=== PATIENT | male | born 1950 | race Caucasian/White ===

== ENCOUNTER 2017-07-27 11:04 | Inpatient (IN) | payer MEDICARE, BC ==
[2017-07-27] MEDS ORDERED: methylPREDNISolone Sod Succ/PF 125 MG/2 ML VIAL ONE (11:25)
[2017-07-27] MEDS ORDERED: Water For Inject, Bacteriostat 30 ML ONE (11:25)
[2017-07-27] MEDS ORDERED: Azithromycin 500 MG VIAL ONE (12:02)
[2017-07-27] MEDS ORDERED: cefTRIAXone\\ROCEPHIN 2 GM VIAL ONE (12:02)
[2017-07-27 12:04] LABS: Hematocrit 45.6 % (42.0-52.0); Mean Platelet Volume 9.9 fL (7.4-10.4); White Blood Cell (WBC) Count 0.6 thou/uL (4.8-10.8)
[2017-07-27 12:06] LABS: ALT (SGPT) 12 U/L (8-55); AST (SGOT) 12 U/L (5-34); Alkaline Phosphatase 63 U/L (40-150); Anion Gap 13 mmol/L (10-20); BUN (Urea Nitrogen) 62 mg/dL (8.4-25.7); Bilirubin, Total 0.9 mg/dL (0.2-1.2); Calc. Creatinine Clearance 0 mL/min (70-130); Calcium 8.6 mg/dL (7.8-10.44); Carbon Dioxide 22 mmol/L (23-31); Chloride 101 mmol/L (98-107); Estimated GFR-MDRD 41; Globulin 2.2 g/dL (2.4-3.5); Protein, Total 5.3 g/dL (5.8-8.1)
[2017-07-27 12:14] LABS: Troponin I 0.013 ng/mL (< 0.028)
[2017-07-27 12:15] LABS: Lactic Acid - Sepsis 2.3 mmol/L (0.5-2.2)
[2017-07-27 12:19] LABS: Band 20 % (5-11); Neutrophil 20 % (42-75)
[2017-07-27] MEDS ORDERED: Ketorolac Tromethamine 30 MG/ML VIAL ONE (12:39)
[2017-07-27] MEDS ORDERED: Norepinephrine 8 MG/0.9% NS 250 ML ONE (13:22)
[2017-07-27 15:19] VITALS: BMI 29.7
[2017-07-27] MEDS ORDERED: Norepinephrine 8 MG/0.9% NS 250 ML IVPB SCH (15:30)
[2017-07-27] MEDS ORDERED: Albuterol Sulfate 1.25 MG/3 ML NEB NEB PRN (15:30)
[2017-07-27] MEDS ORDERED: Bisacodyl 10 MG SUPP PR PRN (15:31)
[2017-07-27] MEDS ORDERED: Ondansetron HCl/PF 4 MG/2 ML Vial IVP PRN (15:31)
[2017-07-27] MEDS ORDERED: Calcium Carbonate 500 MG ChewTAB PO PRN (15:31)
[2017-07-27] MEDS ORDERED: Bisacodyl 5 MG TAB PO PRN (15:31)
[2017-07-27] MEDS ORDERED: Ondansetron ODT 4 MG TAB PO PRN (15:31)
[2017-07-27] MEDS ORDERED: Acetaminophen 650 MG Suppository PR PRN (15:31)
[2017-07-27] MEDS ORDERED: Acetaminophen 325 MG TAB PO PRN (15:31)
[2017-07-27 15:55] LABS: PTT 28.6 SEC (22.9-36.1); Prothrombin Time 17.6 SEC (12.0-14.7)
[2017-07-27] MEDS: Sodium Chloride 0.9% 1,000 ML IV SCH (16:07)
[2017-07-27 16:09] LABS: Troponin I Less than 0.010 ng/mL (< 0.028)
[2017-07-27 16:41] LABS: Bilirubin Negative (Negative); Blood, Urine Negative (Negative); Glucose, Urine (Dipstick) Negative (Negative); Ketone, Urine Negative (Negative); Nitrite Negative (Negative); Protein, Urine (Dipstick) Negative (Neg-Trace)
[2017-07-27] MEDS ORDERED: Cefepime 2 GM in Sodium Chloride 0.9% 100 ML IVPB SCH (17:00)
[2017-07-27] MEDS: Hydrocortisone Sod Succ/PF 100 mg/2 ml Vial IVP SCH ×2 (17:40→23:00)
[2017-07-27] MEDS: Mometasone/Formoterol 120 PUFF INHALER INH SCH (18:39)
[2017-07-27 19:43] LABS: Hematocrit 39.1 % (42.0-52.0); Mean Platelet Volume 10.1 fL (7.4-10.4); Red Blood Cell (RBC) Count 3.95 mill/uL (4.70-6.10); White Blood Cell (WBC) Count 1.1 thou/uL (4.8-10.8)
[2017-07-27] MEDS ORDERED: Zolpidem Tartrate 5 MG TAB PO PRN (20:00)
[2017-07-27 20:10] LABS: Band 20 % (5-11); Neutrophil 64 % (42-75); Reactive Lymphocytes 4 % (0-10); Toxic Granulation SLIGHT
[2017-07-27] MEDS: Atorvastatin Calcium 10 MG TAB PO SCH (20:27)
[2017-07-27] MEDS: Morphine Sulfate 2 MG/ML SYRINGE SLOW IVP PRN (20:39)
--- NOTE | 2017-07-27 22:54 | CON ---
DATE OF CONSULT: 07/27/2017 SUBJECTIVE: A 66-year-old gentleman who was here for MediPort insertion. Prior to that he develope d chills and sweats. Post-MediPort insertion, he was hypertensive and developed some left lower seymour k pain, anterior chest pain, and he was taken to the ER where he was hypertensive. He received 4 li ters of IV fluids and is transferred now to the ICU, his blood pressure which is now 110. He is denying any sputum production, but he clearly had chills and sweats. 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 PAST MEDICAL HISTORY: Otherwise, pertinent for COPD and chemotherapy a week ago, hyperlipidemia, hi gh cholesterol. PAST SURGICAL HISTORY: None except for the bronchoscopy. CURRENT MEDICATION FROM HOME: Includes amlodipine, valsartan, Spiriva, Pravachol, Advair, Zyrtec, a spirin. REVIEW OF SYSTEMS: Otherwise negative. ALLERGIES: PENICILLIN. PHYSICAL EXAMINATION: GENERAL: On examination, awake, alert, responsive, appears in no distress. VITAL SIGNS: His blood pressure is 130/80, pulse is 90, sats are 97%, respirations 15. CHEST: Decreased breath sounds, no wheezing. CARDIAC: Normal S1, S2. No gallops. ABDOMEN: Soft. No masses. LABORATORY DATA: White count 10.6, H\T\H 15 and 45, platelet count 24, creatinine is 1.69. Sodium 132. GFR is 41, albumin is 3.1. IMPRESSION: 1. Status post hypertension, status post chemotherapy. 2. Severe thrombocytopenia, leukopenia. 3. Small cell bronchogenic carcinoma. No fever, chills, or sepsis. 4. Chronic obstructive pulmonary disease. 5. Azotemia. Sepsis protocol initiated with Maxipime, thiamine, and vitamin C. Additionally, continue hydration. His cortisol level is low, started on hydrocortisone . Supportive care. We will follow and notify Dr. Castle in the morning.
[2017-07-28] MEDS: Sodium Chloride 0.9% 1,000 ML IV SCH ×4 (00:12→13:28)
[2017-07-28] MEDS ORDERED: AZITHROMYCIN IVPB SCH (02:00)
[2017-07-28] MEDS ORDERED: SODIUM CHLORIDE IVPB SCH (02:00)
[2017-07-28] MEDS ORDERED: ADMIXTURE FEE IVPB SCH (02:00)
[2017-07-28] MEDS ORDERED: Azithromycin 250 MG in Syringe 0 ML IVPB SCH (02:00)
[2017-07-28] MEDS: Cefepime 2 GM in Sodium Chloride 0.9% 100 ML IVPB SCH ×2 (02:58→13:31)
[2017-07-28] MEDS: Morphine Sulfate 2 MG/ML SYRINGE SLOW IVP PRN ×2 (03:41→09:09)
[2017-07-28 04:32] LABS: Hematocrit 41.3 % (42.0-52.0); Mean Platelet Volume 10.8 fL (7.4-10.4); Red Blood Cell (RBC) Count 4.15 mill/uL (4.70-6.10); White Blood Cell (WBC) Count 1.1 thou/uL (4.8-10.8)
[2017-07-28 04:47] LABS: ALT (SGPT) 11 U/L (8-55); AST (SGOT) 11 U/L (5-34); Alkaline Phosphatase 45 U/L (40-150); Anion Gap 13 mmol/L (10-20); BUN (Urea Nitrogen) 53 mg/dL (8.4-25.7); Bilirubin, Total 0.3 mg/dL (0.2-1.2); Calc. Creatinine Clearance 65 mL/min (70-130); Calcium 8.4 mg/dL (7.8-10.44); Carbon Dioxide 21 mmol/L (23-31); Chloride 107 mmol/L (98-107); Estimated GFR-MDRD 48; Globulin 2.3 g/dL (2.4-3.5); Protein, Total 4.9 g/dL (5.8-8.1)
[2017-07-28 04:51] LABS: Band 12 % (5-11); Neutrophil 50 % (42-75)
[2017-07-28] MEDS: Hydrocortisone Sod Succ/PF 100 mg/2 ml Vial IVP SCH ×4 (05:08→23:27)
--- NOTE | 2017-07-28 07:32 | PRG ---
DATE OF SERVICE: 07/28/2017 SUBJECTIVE: The patient was admitted yesterday with neutropenic sepsis. He was weaned off Levophed about 10:00 last night. He says he feels much better this morning and has no acute complaints. PHYSICAL EXAMINATION: VITAL SIGNS: On exam, his blood pressure is 123/69, pulse 82, respirations 22, O2 sat 97%. Total i ntake for the last shift 2164, output 1750. HEENT: Unremarkable. NECK: Without adenopathy, JVD, or bruits. LUNGS: He has slightly diminished breath sounds in the left compared to the right, but overall bett er air entry than 2 weeks ago when he was examined by myself. CARDIAC: S1 and S2 regular. ABDOMEN: Soft and nontender. EXTREMITIES: Without overt clubbing, cyanosis, or edema. LABORATORY DATA: White blood cell count 1.1, hemoglobin 13, hematocrit 41, platelet count 15. INR 1.4. Sodium 136, potassium 5.2, chloride 107, CO2 21, BUN 53, creatinine 1.4, glucose 137, albumin 2.6. ASSESSMENT: 1. Neutropenic sepsis likely secondary to recent chemotherapy. 2. Small cell lung cancer. 3. Probable underlying chronic obstructive pulmonary disease. 4. Relative adrenal insufficiency. PLAN: The patient has been weaned off vasopressors and can be safely transferred to the Oncology un it. Continue hydrocortisone, vitamin C, cefepime and azithromycin. I think he will need several mo re days of IV antibiotics and I would not attempt to wean vitamin C or thiamine for the next 4 days.
--- NOTE | 2017-07-28 09:05 | RAD ---
PORTABLE CHEST: History: Follow up pneumonia, dyspnea. CCU Comparison: 07-27-17 FINDINGS: Hazy infiltrate in the right midlung again noted. Left basilar atelectasis and/or infiltrate again n oted. Mildly elevated left hemidiaphragm again noted. Central line unchanged. IMPRESSION: The lung findings as noted above have not significantly changed from yesterday. POS: [facility]
[2017-07-28] MEDS: Loratadine 10 MG TAB PO SCH (09:09)
[2017-07-28] MEDS: Famotidine/PF 20 mg/2ml Vial SLOW IVP SCH (09:09)
[2017-07-28 09:53] LABS: Hematocrit 45.6 % (42.0-52.0); Mean Platelet Volume 12.2 fL (7.4-10.4); Red Blood Cell (RBC) Count 4.58 mill/uL (4.70-6.10); White Blood Cell (WBC) Count 1.7 thou/uL (4.8-10.8)
--- NOTE | 2017-07-28 10:21 | HP-2 ---
DATE OF ADMISSION: 07/27/2017 CODE STATUS: DNR. PRIMARY CARE PHYSICIAN: Tatyana. ATTENDING PHYSICIAN: Alberta Menon MD RESIDENT: Dr. Santi Bolton, PGY1 SPECIALISTS: Dr. Cobos, oncologist and Dr. Castle, towboat engineer. CHIEF COMPLAINT: Hypotensive status post port placement. HISTORY OF PRESENT ILLNESS: This is a 66-year-old male, who came in for port placement this morning, and before port placement and postop, patient was hypotensive, nonresponsive to fluids. On starting history, patient since April had been saying he had been increasingly lethargic, having increased shortness of breath and finally went to the doctor and they were working him up for allergy-type stuff. He finally got a chest x-ray, and there was a noted mass. He got a biopsy 2 weeks ago which came back as small cell lung carcinoma. He started chemo last week on , Thursday, and Thursday and then was scheduled for MediPort placement today. When he woke up this morning in the shower he said he started getting pain in his left shoulder; pain then radiated over to his right side of his body and then he came in for a port placement. When he was in for port placement, SBPs were around 80-70. At this time, they still placed the port, but only did it under local anesthetic due to his blood pressure. After the surgery, gave fluid boluses x2 with 2 liters and he was then sent to the ER. When he came to the ER, his blood pressures were still low, was given 2 more liters of 2 fluid boluses and was then seen. Dr. Castle is the one who performed the lung biopsy and Dr. Cobos is the one who started the chemo. He reports that he has had dark stools for the last 4-5 days. No blood when brushing his teeth or when urinating. Denied any chest pain, denied any nausea, vomiting, diarrhea, constipation. He did report a little shortness of breath and increased cough. REVIEW OF SYSTEMS: General: The patient did also report having some fever, chills. Did have weight and decreased appetite changes, has lost weight over the last few months. Also, did report increased fatigue. Respiratory: Did report having cough. GI: Did report having some abdominal pain, having severe pain in the back on the right side, where the pain was referred. All other review of systems are listed in the HPI, otherwise noted were negative at this time. In the ER, he was given two 1 liter fluid boluses in the ER, was given cefepime , Levophed, Rocephin, azithromycin, Toradol, and steroids. PAST MEDICAL HISTORY: Hypertension, hyperlipidemia. PAST SURGICAL HISTORY: He had a colonoscopy on 03/2016 showing 2-3 polyps. ALLERGIES: AMOXICILLIN, which he had breathing problems, and CHANTIX. MEDICATIONS: Amlodipine/valsartan/HCTZ 10/320/25, tiotropium 2 puffs, pravastatin 10 mg, Advair Diskus 1 inhaler b.i.d., Zyrtec 10 mg p.o., aspirin 81 mg, and albuterol inhaler every 3 p.r.n. FAMILY HISTORY: Significant for dad with colon cancer found when in late 60s. SOCIAL HISTORY: He is a 1 pack per day smoker for the last 40 years. He recently quit just a few weeks ago after finding out about the cancer. Alcohol use, he has 1 drink per month. Drugs, no illicit drug use noted. PHYSICAL EXAMINATION: VITAL SIGNS: Blood pressure 76/53, pulse 100, respirations 20, temperature 97.7 , pulse ox 98% on room air. GENERAL: He is kind of lethargic, falling asleep in bed. He does awake to answer questions, but then goes back to sleep. He is obese. He is appropriately interactive, answering questions. EYES: Conjunctivae within normal limits. ENT: TMs pearly paz without bulging or erythema. Nasal mucosa within normal limit and oropharynx within normal limits. No bleeding noted. NECK: Supple, no thyromegaly, no bruits. CARDIOVASCULAR: Regular rate and rhythm. No murmurs, no gallop. Positive radial pulses, positive pedal pulses palpated bilaterally. RESPIRATIONS: He does have some wheezing. Does have some decreased lung sounds on auscultation. SKIN: Warm and dry. No cyanosis. No lesions noted. ABDOMEN: Soft, nontender to palpation. Bowel sounds heard in all 4 quadrants. No masses or distention. There was no pain on palpation; however, the ribs on the right side are pain to palpation on the left side of the shoulder. EXTREMITIES: He did have clubbing noted in his toes and fingernails. No cyanosis. No edema or pitting noted. MUSCULOSKELETAL: Structure within normal limits. Tone within normal limits. NEUROLOGIC: No focal neuro deficits. Sensation was within normal limits. PSYCHIATRIC: The patient was just a little bit lethargic. LABORATORY DATA: White blood cell count was 0.6, hemoglobin was 15.4, hematocrit is 35.6, platelets were 20.4, MCV was 99.1, neutrophils are low at 20. Sodium was 132, potassium 4.2, chloride 101, carbon dioxide 22, BUN 62, creatinine 1.69, GFR 41, glucose of 83, calcium 8.6, total protein 5.3, albumin 3.1, total bilirubin 0.9, AST 12, ALT 12, alkaline phosphatase 63, lactic acid 2.3, CK-MB 1.3, troponin is 0.013. ASSESSMENT AND PLAN: 1. Hypotensive shock not responding to fluid, I will start him on normal saline at 150, we will repeat CBC in 6 hours. We will consult Dr. Mac with Pulmonology and consult Dr. Cobos with Oncology. We will start him on Levophed pressors as he started in the ER and responding. We will put him on strict I and O's with daily weights. We will check his BMP. 2. Thrombocytopenia, possible gastrointestinal bleed. We will check a fecal occult blood test. Start him on Protonix and start him on coags and check his coags in the morning. 3. Severe neutropenia. We will put him on neutropenic precautions. Consult Dr. Cobos and will treat with cefepime and azithromycin antibiotics. 4. Acute kidney injury, creatinine 1.69. We will continue fluids and continue to monitor CMP in the morning. 5. Lactic acidosis may be secondary to septic shock, the source is unknown. Blood cultures, urine cultures pending. Urinalysis collected. There is a concern for pneumonia versus chronic obstructive pulmonary disease versus like pleural effusion. 6. Suspect chronic obstructive pulmonary disease versus pneumonia. We will do DuoNeb scheduled, p.r.n. albuterol and repeat chest x-ray in the morning. 7. Small cell lung cancer. We will consult Dr. Cobos and follow recommendations. 8. Rib pain. We will repeat cardiac enzymes and follow them serially. 9. Weight loss. We will consult dietary likely secondary due to cancer. 10. Suspected obstructive sleep apnea, per history from and patient. We will order a CPAP for the night to help. RONDA
--- NOTE | 2017-07-28 10:58 | PDOC.FM ---
- Subjective Subjective: Patient is feeling well at this time. He is found sitting up in chair, conversing with . - Objective MAR Reviewed: Yes Vital Signs & Weight: Vital Signs (12 hours) Temp Pulse Resp Pulse Ox 07/28/17 08:00 97.8 F 77 18 07/28/17 04:00 97.8 F 07/28/17 00:00 98.2 F 07/27/17 23:12 73 16 97 Weight Weight 93.9 kg Most Recent Monitor Data Heart Rate from ECG 71 NIBP 126/71 NIBP BP-Mean 98 Respiration from ECG 22 SpO2 96 I&O: 07/27/17 07/28/17 07/29/17 06:59 06:59 06:59 Intake Total 2164.8 1268 Output Total 1750 400 Balance 414.8 868 Result Diagrams: 07/28/17 09:28 07/28/17 03:36 <Barrett Saldaña M - Last Filed: 07/28/17 11:05> - Objective Vital Signs & Weight: Vital Signs (12 hours) Temp Pulse Resp 07/28/17 10:15 97.4 F L 78 20 07/28/17 08:00 97.8 F 77 18 07/28/17 04:00 97.8 F Weight Admit Weight 93.894 kg Weight 93.894 kg Most Recent Monitor Data Heart Rate from ECG 71 NIBP 126/71 NIBP BP-Mean 98 Respiration from ECG 22 SpO2 96 I&O: 07/27/17 07/28/17 07/29/17 06:59 06:59 06:59 Intake Total 2164.8 1268 Output Total 1750 400 Balance 414.8 868 Result Diagrams: 07/28/17 09:28 07/28/17 03:36 <Elke Quintana - Last Filed: 07/28/17 12:44> Phys Exam - Physical Examination Constitutional: NAD HEENT: moist MMs Neck: no nodes, supple Crackles heard both lungs Cardiovascular: RRR Gastrointestinal: soft, no distention Musculoskeletal: no edema Neurological: non-focal, moves all 4 limbs Lymphatic: no nodes Psychiatric: normal affect Skin: no rash <Barrett Saldaña M - Last Filed: 07/28/17 11:05> Dx/Plan (1) Neutropenic sepsis Code(s): A41.9 - SEPSIS, UNSPECIFIED ORGANISM; D70.9 - NEUTROPENIA, UNSPECIFIED Status: Acute Plan: - No clear source, blood culture pending still - He is currently covered on cefepime and azithromycin for possible atypical Patient was originally on pressor but was off of it by early this morning - His BP meds have been held. His BP is in 120 systolic - Will continue covering with abx but possible this is not an infection. - He is also getting vit c, thiamin and hydrocortisone for sepsis/hypotension (2) Thrombocytopenia Code(s): D69.6 - THROMBOCYTOPENIA, UNSPECIFIED Status: Acute Plan: Low platelet, no other lab to compare to. Will discuss with Dr. Cobos for baseline patient had prior to chemo treatment. May be result of chemo. At this time, SCD only. Will have to consider sepsis as another possible etiology. (3) Neutropenia associated with mucositis due to antineoplastic therapy Code(s): D70.8 - OTHER NEUTROPENIA; K12.32 - ORAL MUCOSITIS (ULCERATIVE) DUE TO OTHER DRUGS Status: Acute Plan: - Started chemo last week. May be result of chemo. In either case, will cover patient for possible neutropenic sepsis with cefepime and azithromycin for atypical considering patient has lung malignancy. (4) TESSA (acute kidney injury) Code(s): N17.9 - ACUTE KIDNEY FAILURE, UNSPECIFIED Status: Acute Plan: - Creatinine improving. Injury may be from hypotension. BUN ratio greateer then 20. - Will continue with 100 ml/hr of NS (5) Lactic acid acidosis Code(s): E87.2 - ACIDOSIS Status: Acute Plan: - Repeat lactic lab came back normal. Acidosis is likely from previous shock, but resolvede (6) COPD (chronic obstructive pulmonary disease) Status: Acute Plan: Question of possible COPD versus lung malignancy causing some diminish breath sound and crackles on exam. - Will have duoneb treatment for SOB while here (7) Small cell lung cancer Code(s): C34.90 - MALIGNANT NEOPLASM OF UNSP PART OF UNSP BRONCHUS OR LUNG Status: Acute Plan: - Patient undergoing chemo for this. Consult Dr. Cobos so she knows patient is in hospital and if there's any changes she want ot make in light of his malignancy. <Barrett Saldaña M - Last Filed: 07/28/17 11:05> Attending Addendum - Attending Addendum I personally evaluated the patient and discussed the management with Dr. Saldaña. I agree with the History, Examination, Assessment and Plan documented above with any addition or exceptions noted below. The patient was sitting up in a chair with his at bedside. He is off levophed. Continue IV antibiotics. The patient still has neutropenic precautions. Patient likely also has underlying sleep apnea and will need outpt sleep study. <Elke Quintana - Last Filed: 07/28/17 12:44>
[2017-07-28] MEDS ORDERED: traMADol HCl 50 MG TAB PO PRN (11:17)
[2017-07-28] MEDS ORDERED: Melatonin 3 MG TAB PO PRN (11:17)
[2017-07-28] MEDS: Mometasone/Formoterol 120 PUFF INHALER INH SCH ×2 (11:23→20:38)
[2017-07-28] MEDS: Atorvastatin Calcium 10 MG TAB PO SCH (20:24)
--- NOTE | 2017-07-29 02:06 | CON ---
DATE OF CONSULTATION: 07/28/2017 REASON FOR CONSULTATION: Small cell lung cancer. HISTORY OF PRESENT ILLNESS: The patient is a 66-year-old male who was diagnosed with small cell car cinoma. He was experiencing 3 months of shortness of breath with hoarseness and had lost 20 pounds over the past 3 months. He had significant cough and had actually passed out from coughing several times. CT scan showed a left lung mass. Pulmonary and bronchoscopy was performed, which confirmed small cell carcinoma. He then presented to our clinic and received his first cycle of chemotherapy consisting of carboplatin and ACTUARIAL CONSULTANT-16. He received Neulasta after treatment on 07/21/2017. Yesterday , he presented to this facility for a MediPort placement postprocedure. He had hypotension and had to be placed briefly on vasopressors. He received IV fluids. He was neutropenic with a white count of 600 and a platelet count of 24,000. The patient states that since treatment his cough has signi ficantly improved. He feels he is breathing much better. He does admit to dark stools shortly afte r treatment. He has a stool guaiac this morning, which was positive for occult blood. PAST MEDICAL HISTORY: 1. Recently diagnosed small cell lung cancer. 2. High blood pressure. 3. Chronic obstructive pulmonary disease. PAST SURGICAL HISTORY: Bronchoscopy. ALLERGIES: No known drug allergies. HOME MEDICATIONS: 1. Advair b.i.d. 2. Amlodipine, hydrochlorothiazide, valsartan daily. 3. Aspirin 81 mg daily. 4. Pravastatin 40 mg daily. 5. Spiriva daily. 6. ProAir daily. FAMILY HISTORY: He has a father with colon cancer. SOCIAL HISTORY: , has 2 children, lives with his spouse, a current everyday smoker. No alco hol or illicit drug use. REVIEW OF SYSTEMS: Constitutional: No fever, chills, night sweats. Eyes: No blurred or double vi meng. ENT: No pain, sore throat, or dysphagia. Positive for hoarseness. Cardiovascular: No ches t pain, palpitations, or syncope. Respiratory: Positive for occasional shortness of breath and cou gh. Gastrointestinal: No nausea, vomiting, diarrhea, constipation, or abdominal pain. Genitourina ry: No dysuria or hematuria. Musculoskeletal: No joint or back pain. Skin: No rash or pruritus. Hematologic: No bleeding, bruising, or clotting. Neurologic: No headache, weakness, numbness, ti ngling, or seizures. Psychiatric: No anxiety or depression. PHYSICAL EXAMINATION: VITAL SIGNS: Temperature is 97.4, pulse 75, respiratory rate 16, BP is 126/71. He is 94% on room a ir. GENERAL: Well-developed, well-nourished male in no acute distress. HEENT: Normocephalic, atraumatic. Pupils are equal and reactive to light. NECK: Supple without JVD or mass. CARDIOVASCULAR: Regular rate and rhythm. LUNGS: Clear to auscultation. ABDOMEN: Soft, nontender, bowel sounds are positive. EXTREMITIES: No clubbing, cyanosis, or edema. SKIN: No rash. HEMATOLOGIC: No petechia or purpura. NEUROLOGICAL: Nonfocal. PSYCHIATRIC: The patient is alert and oriented and answering questions appropriately. PERTINENT LABORATORY AND X-RAYS: Current WBCs are 1.7, hemoglobin 14.8, hematocrit 45.6, platelet c ount 21,000, 50% neutrophils, 12% bands, 26% lymphocytes. PT is 17.6, INR is 1.4, PTT is 28.6. Sod ium is 136, potassium 5.2, chloride 107, CO2 is 21, BUN is 53, creatinine 1.48. Lactic acid is 1.3, calcium 8.4, total bilirubin 0.3, AST 11, ALT is 11, alkaline phosphatase is 45, CK-MB is 1.2, trop onin is less than 0.010. BNP is 200, serum total protein 4.9, globulin 2.6, albumin 2.3. Urine is negative for bacteria. ASSESSMENT: 1. Small cell lung cancer, status post chemotherapy with carboplatin and ACTUARIAL CONSULTANT-16. 2. Neutropenia. 3. Thrombocytopenia. 4. Hypotensive episode. 5. Positive guaiac of stool. DISCUSSION: The patient is hypertensive, has improved substantially. He will follow up with his PC P to have his blood pressure medications adjusted. His small cell lung cancer symptoms have improve d dramatically since cycle 1 of treatment. His neutrophils are improving. The Neulasta is likely s tarting to work, it has been 7 days. His platelets have remained low, given the positive guaiac of the stool. I will give a unit of platelets today and continue to monitor. No further workup at thi s time. If needed this can be done as an outpatient. Thank you for the consult. I will follow him closely.
[2017-07-29] MEDS: Cefepime 2 GM in Sodium Chloride 0.9% 100 ML IVPB SCH (02:17)
[2017-07-29] MEDS ORDERED: SODIUM CHLORIDE IVPB SCH (03:00)
[2017-07-29] MEDS ORDERED: ADMIXTURE FEE IVPB SCH (03:00)
[2017-07-29] MEDS ORDERED: AZITHROMYCIN IVPB SCH (03:00)
[2017-07-29] MEDS: Hydrocortisone Sod Succ/PF 100 mg/2 ml Vial IVP SCH (05:45)
[2017-07-29 06:23] LABS: Anion Gap 12 mmol/L (10-20); BUN (Urea Nitrogen) 34 mg/dL (8.4-25.7); Calc. Creatinine Clearance 93 mL/min (70-130); Calcium 8.4 mg/dL (7.8-10.44); Carbon Dioxide 24 mmol/L (23-31); Chloride 106 mmol/L (98-107); Estimated GFR-MDRD 65
[2017-07-29 06:40] LABS: #Lymphocytes 0.4 thou/uL (1.20-3.40); #Monocytes 0.1 thou/uL (0.11-0.59); #Neutrophils 1.8 thou/uL (1.40-6.50); %Eosinophils 1.5 % (0.0-10.0); %Lymphocytes 18.2 % (21.0-51.0); %Monocytes 4.4 % (0.0-10.0); Hematocrit 37.3 % (42.0-52.0); Mean Platelet Volume 9.3 fL (7.4-10.4); Red Blood Cell (RBC) Count 3.73 mill/uL (4.70-6.10); White Blood Cell (WBC) Count 2.3 thou/uL (4.8-10.8)
[2017-07-29 07:29] VITALS: BP 135/65; TEMP 97.6
[2017-07-29] MEDS: Mometasone/Formoterol 120 PUFF INHALER INH SCH (07:52)
--- NOTE | 2017-07-29 08:16 | PDOC.FM ---
- Subjective Subjective: Patient states that he feels well. He does not recall a melanotic BM during his stay here but has had it in past. He denies fever, chills, lightheadedness, emesis. He got a platlet transfusion yesterday without issue. We discussed his FOBT, and the importance of following p on this in light of his low platelet, melanotic stool and hypotensive episode. He strongly prefer outpatient workup, after risk and benefits of colonoscopy and GI consult during this visit was discussed. - Objective MAR Reviewed: Yes Vital Signs & Weight: Vital Signs (12 hours) Temp Pulse Resp BP BP Pulse Ox 07/29/17 07:50 80 16 96 07/29/17 07:28 97.6 F 82 16 135/65 91 L 07/29/17 04:49 96 07/29/17 03:28 98.1 F 100 16 151/69 H 94 L 07/29/17 02:37 65 18 96 07/28/17 23:31 97.3 F L 82 16 108/53 L 92 L 07/28/17 20:44 60 18 97 07/28/17 20:38 81 18 92 L Weight Admit Weight 93.894 kg Weight 102.24 kg Most Recent Monitor Data Heart Rate from ECG 71 NIBP 126/71 NIBP BP-Mean 98 Respiration from ECG 22 SpO2 96 I&O: 07/28/17 07/29/17 07/30/17 06:59 06:59 06:59 Intake Total 2164.8 5118 Output Total 1750 2425 Balance 414.8 2693 Result Diagrams: 07/29/17 05:50 07/29/17 05:50 <Barrett Saldaña M - Last Filed: 07/29/17 08:13> - Objective Vital Signs & Weight: Vital Signs (12 hours) Temp Pulse Resp BP BP Pulse Ox 07/29/17 08:00 97.6 F 80 16 91 L 07/29/17 07:50 80 16 96 07/29/17 07:28 97.6 F 82 16 135/65 91 L 07/29/17 04:49 96 07/29/17 03:28 98.1 F 100 16 151/69 H 94 L 07/29/17 02:37 65 18 96 07/28/17 23:31 97.3 F L 82 16 108/53 L 92 L Weight Admit Weight 93.894 kg Weight 102.24 kg Most Recent Monitor Data Heart Rate from ECG 71 NIBP 126/71 NIBP BP-Mean 98 Respiration from ECG 22 SpO2 96 I&O: 07/28/17 07/29/17 07/30/17 06:59 06:59 06:59 Intake Total 2164.8 5118 Output Total 1750 2425 Balance 414.8 2693 Result Diagrams: 07/29/17 05:50 07/29/17 05:50 <Elke Quintana - Last Filed: 07/29/17 10:47> Phys Exam - Physical Examination Constitutional: NAD HEENT: moist MMs Neck: supple Mild rhonchi primarily left side Cardiovascular: RRR Gastrointestinal: soft, no distention, positive bowel sounds Musculoskeletal: no edema Neurological: moves all 4 limbs Lymphatic: no nodes Psychiatric: normal affect Skin: no rash <Ashlee Saldañachavez White - Last Filed: 07/29/17 08:13> Dx/Plan (1) Neutropenic sepsis Code(s): A41.9 - SEPSIS, UNSPECIFIED ORGANISM; D70.9 - NEUTROPENIA, UNSPECIFIED Status: Acute Plan: - No clear source, blood culture pending still - He is currently covered on cefepime and azithromycin for possible atypical Patient was originally on pressor but was off of it by early this morning - His BP meds have been held. His BP is in 120 systolic - Will continue covering with abx but possible this is not an infection. - He is also getting vit c, thiamin and hydrocortisone for sepsis/hypotension 07/29 - Procalcitonin returned elevated. Bld and Ucx have both returned negative so far. - Patient BP has been stable, lowest at 100 systolic around midnight. - Good urine output of near 2.4 L yesterday. - Treatment continues with azithromycin and cefepime. (2) Thrombocytopenia Code(s): D69.6 - THROMBOCYTOPENIA, UNSPECIFIED Status: Acute Plan: Low platelet, no other lab to compare to. Will discuss with Dr. Cobos for baseline patient had prior to chemo treatment. May be result of chemo. At this time, SCD only. Will have to consider sepsis as another possible etiology. 07/29 - Platelet improved to 30 after transfusion -Will continue to monitor while patient here (3) Neutropenia associated with mucositis due to antineoplastic therapy Code(s): D70.8 - OTHER NEUTROPENIA; K12.32 - ORAL MUCOSITIS (ULCERATIVE) DUE TO OTHER DRUGS Status: Acute Plan: - Started chemo last week. May be result of chemo. In either case, will cover patient for possible neutropenic sepsis with cefepime and azithromycin for atypical considering patient has lung malignancy. 07/29 - Neutropenia is improving - Hem-onc mentioned they may start on neupogen - Appreciate recs (4) TESSA (acute kidney injury) Code(s): N17.9 - ACUTE KIDNEY FAILURE, UNSPECIFIED Status: Acute Plan: - Creatinine improving. Injury may be from hypotension. BUN ratio greateer then 20. - Will continue with 100 ml/hr of NS 07/29 - TESSA is improving (5) Lactic acid acidosis Code(s): E87.2 - ACIDOSIS Status: Acute Plan: - Repeat lactic lab came back normal. Acidosis is likely from previous shock, but resolvede 07/29 - Considered resolved at this time. (6) COPD (chronic obstructive pulmonary disease) Status: Acute Plan: Question of possible COPD versus lung malignancy causing some diminish breath sound and crackles on exam. - Will have duoneb treatment for SOB while here 07/29 - Patient not having SOB. Continuing with current treatment. (7) Small cell lung cancer Code(s): C34.90 - MALIGNANT NEOPLASM OF UNSP PART OF UNSP BRONCHUS OR LUNG Status: Acute Plan: - Patient undergoing chemo for this. Consult Dr. Cobos so she knows patient is in hospital and if there's any changes she want ot make in light of his malignancy. 07/29 - Appreciate onc recs. Patient said that apparently onc is ok with them going home. Plan to follow up with onc about this rec. (8) CHRIS (obstructive sleep apnea) Code(s): G47.33 - OBSTRUCTIVE SLEEP APNEA (ADULT) (PEDIATRIC) Status: Acute Plan: - Patient is unsure if he has sleep apnea, has had no formal diagnosis but was told so in past. He has been getting cpap as needed at night and he understand he needs to follow up with Pulm. (9) Hyperkalemia Code(s): E87.5 - HYPERKALEMIA Status: Acute Plan: Improved after kayexylate administration yesterday. Down to 3.9 today. <Ly,Barrett M - Last Filed: 07/29/17 08:13> Attending Addendum - Attending Addendum I personally evaluated the patient and discussed the management with Dr. Saldaña. I agree with the History, Examination, Assessment and Plan documented above with any addition or exceptions noted below. The patient's ANC is over 1700. Neutropenic precautions may be removed. Patient is feeling great and wants to go home. Blood cultures negative. Will d /c on Levaquin. Pt will need outpt follow-up with GI regarding + FOBT. He voices understanding. Will f/u with oncology and PCP after discharge. <Elke Quintana - Last Filed: 07/29/17 10:47>
[2017-07-29] MEDS ORDERED: Sodium Chloride 0.9% 1,000 ML IV SCH (08:30)
--- NOTE | 2017-07-29 08:33 | PRG ---
DATE OF SERVICE: 07/29/2017 SUBJECTIVE: He is doing reasonably well and he is in a hurry to go home. PHYSICAL EXAMINATION: VITAL SIGNS: On exam, temperature is 97.6, pulse 80, respirations 16, O2 sat 96%, blood pressure 13 5/65. HEENT: Unremarkable. NECK: No JVD. CHEST: Clear to auscultation. CARDIAC: S1 and S2 regular. ABDOMEN: Soft. EXTREMITIES: No edema. LABORATORY DATA: White blood cell count 2.3, hemoglobin 12, hematocrit 37.3, and platelet count 30. Sodium 138, potassium 3.9, chloride 106, CO2 24, BUN 34, creatinine 1.1, glucose 100. ASSESSMENT: 1. Status post septic shock. 2. Small cell lung cancer. 3. Neutropenic sepsis. 4. Thrombocytopenia. PLAN: I would not be in a hurry to discharge this patient. I would continue him on IV antibiotics. I will go ahead and convert his hydrocortisone to oral prednisone, continue vitamin C and thiamine .
[2017-07-29] MEDS ORDERED: predniSONE 20 MG TAB PO SCH (09:00)
[2017-07-29] MEDS: Loratadine 10 MG TAB PO SCH (09:42)
[2017-07-29] MEDS: Famotidine/PF 20 mg/2ml Vial SLOW IVP SCH (09:42)
[2017-07-29] MEDS: Sodium Chloride 0.9% 1,000 ML IV SCH (10:38)
--- NOTE | 2017-07-30 07:19 | DIS-2 ---
DATE OF ADMISSION: 07/27/2017 DATE OF DISCHARGE: 07/29/2017 ADMITTING ATTENDING: Alberta Menon M.D. DISCHARGE ATTENDING: Elke Quintana M.D. RESIDENT: Barrett Saldaña M.D. CONSULTATIONS: 1. Thony Castle M.D., Pulmonology. 2. Ani Sawant APRN, Oncology. PROCEDURES: Chest x-ray. Impression: Hazy infiltrate of right mid lung again noted, left bibasilar atelectasis and/or infiltrates again noted, mildly elevated left hemidiaphragm again noted, central line unchanged. Lung findings are not changed significantly from yesterday where a previous chest x-ray finding was suspicion for possible underlying lymphadenopathy, scarring on the lateral aspect of mid left lung zone, volume loss or infectious pneumonitis. PRIMARY DIAGNOSIS: Possible neutropenic sepsis. SECONDARY DIAGNOSES: 1. Thrombocytopenia. 2. Neutropenia associated with antineoplastic therapy. 3. Acute kidney injury. 4. Lactic acidosis. 5. Chronic obstructive pulmonary disease. 6. Small cell lung cancer. 7. Obstructive sleep apnea. 8. Hyperkalemia. DISCHARGE MEDICATIONS: 1. Levofloxacin 750 mg p.o. daily. 2. Prednisone 20 mg p.o. t.i.d. 3. Azithromycin 250 mg p.o. daily. 4. Advair one inhalation twice daily. 5. Spiriva 2 puffs inhalation daily. 6. Albuterol 1 puff inhalation every 3 hours as needed. 7. Pravastatin 40 mg p.o. daily. 8. Zyrtec 10 mg p.o. daily. 9. Aspirin 81 mg p.o. at bedtime. 10. Ambien 8 mg p.o. at bedtime. DISCONTINUED MEDICATIONS: 1. Amlodipine. 2. Valsartan. 3. HCTZ 10/320/25 mg. HISTORY OF PRESENT ILLNESS AND HOSPITAL COURSE: This is a 66-year-old male who came in for MediPort placement this morning with a history of small cell lung cancer for which he has been getting chemotherapy for the past week. When the MediPort was being placed, his systolic blood pressure was between 80-70. They put him under local anesthetic due to the blood pressure. After surgery, they gave him fluid bolus x2 for 2 liters and he was then sent to the ER for further evaluation. He received another 2 liters of normal saline. He reported at that time that he had been having dark stool for the last 4-5 days, but he has had no active bleeding that he saw. At that time in the ER, he was found to be lethargic. Lab found that WBC was at 0.6, but his hemoglobin was at 15.4, his platelets was also low at 20.4. He appeared to have an acute kidney injury with BUN of 62, creatinine 1.69. He had an elevated bilirubin and liver enzymes at that time as well. He did not have a fever at this time, but because of his low blood pressure and recent chemotherapy along with low WBC, there was concern that he may be having neutropenic sepsis. Sepsis protocol was initiated with cefepime along with thiamine, vitamin C and hydrocortisone and he was also started on azithromycin to cover for possible atypical which was difficult to distinguish with his small cell lung carcinoma. He was also started on Levophed to bring up his blood pressure. In about 12 hours, he was off of Levophed and was maintaining blood pressure in the 120 systolic. At that time, he was transferred from the ICU floor to the oncology floor for further treatment and monitoring along with waiting for culture results. By that time, Oncology had been consulted as well. On the next day on 07/29, cultures remained negative with no growth at 48 hours and the patient remained afebrile with his WBC rising with absolute neutrophil count of about 15,000 and the patient no longer requires any kind of pressors and no active bleeding was noted by the patient either; however, FOBT did came back positive. The patient requested to be discharged at that time even after discussion of risks and benefits of staying for a colonoscopy to completely rule out possible causes for his hypotension including possible GI bleed. The patient indicated that he will follow up with GI as an outpatient and phone number was provided to a local GI doctor. So as for his neutropenic sepsis, framing consultant did not feel that the patient likely had neutropenic sepsis due to him not having a fever and has only symptoms being a transient hypotensive episode. BP will be held at this time due to his initially hypotension and that he does not have hypertension during his stay. They agreed to have him discharged with azithromycin and Levaquin along with steroids. As for thrombocytopenia, it did get treated while he was here, he got transfused with 1 pack of platelets, which had responded to thrombocytopenia as possibly a cause of his chemotherapy. As for his neutropenia, it has been improving, again likely due to the chemotherapy, oncology indicated that they will start him on Neupogen and I will see him back in the clinic for this. As for his TESSA, his creatinine improved only fluid administration, going from 1.69 down to 1.13. As for his COPD, there is a question of possible COPD versus lung malignancy. He wished to continue with DuoNeb treatment and he is going home with his home medications for COPD. As for small cell lung cancer, he is following up with Oncology outpatient. As for CHRIS, the patient states that he will follow up with Pulmonology as an outpatient for this. As for hyperkalemia, this was noted after admission where he had a potassium of 5.2 at the highest, after receiving one dose of Kayexalate , it went down to 3.9. DISPOSITION: Fair. DISCHARGE INSTRUCTIONS: 1. Location: To home. 2. Diet: As tolerated. 3. Activity: As tolerated. 4. Followup: Follow up with Dr. Cobos within a week. Follow up with GI at [facility] final assembler boat within a week. Follow up with primary care physician, Dr. Tyrone Damon within a week and to follow up with Pulmonology within a week. [facility]
== END 2017-07-29 12:28 | disposition home or self-care (01) | DRG 871 ==
LOC: ERS 11:04 → CCU 13:16 → ONC 07-28 10:14
PROVIDERS: ADMIT Family Medicine; ATTEND Family Medicine
PROC: 30233R1 Transfusion of Nonautologous Platelets into Peripheral Vein, Percutaneous Approach (ICD-10-PCS; principal; 2017-07-27)
PROC: 5A09357 Assistance with Respiratory Ventilation, Less than 24 Consecutive Hours, Continuous Positive Airway Pressure (ICD-10-PCS; 2017-07-27)
DX: A41.9 Sepsis, unspecified organism (principal); R65.21 Severe sepsis with septic shock; N17.9 Acute kidney failure, unspecified; E87.2 Acidosis; D69.6 Thrombocytopenia, unspecified; D70.1 Agranulocytosis secondary to cancer chemotherapy; C34.90 Malignant neoplasm of unspecified part of unspecified bronchus or lung; J44.9 Chronic obstructive pulmonary disease, unspecified; E27.40 Unspecified adrenocortical insufficiency; Z95.828 Presence of other vascular implants and grafts; E78.5 Hyperlipidemia, unspecified; I10 Essential (primary) hypertension; Z88.1 Allergy status to other antibiotic agents; Z88.8 Allergy status to other drugs, medicaments and biological substances; Z79.82 Long term (current) use of aspirin; Z87.891 Personal history of nicotine dependence; E66.9 Obesity, unspecified; Z68.32 Body mass index [BMI] 32.0-32.9, adult; G47.33 Obstructive sleep apnea (adult) (pediatric); T45.1X5A Adverse effect of antineoplastic and immunosuppressive drugs, initial encounter; Z66 Do not resuscitate; E87.5 Hyperkalemia; D70.8 Other neutropenia; K12.39 Other oral mucositis (ulcerative); F32.9 Major depressive disorder, single episode, unspecified
CPT/HCPCS: 36415; 36430; 71010; 80048; 80053; 81003; 82274; 82533; 82553; 83605; 83880; 84145; 84484; 85025; 85610; 85730; 86850; 86900; 86901; 87040; 87086; 93005; 94640; 94664; 96365; 96367; 96375; A4216; C1788; J0456; J0670; J0692; J0696; J1642; J1720; J1885; J1956; J2250; J2930; J3010; J3411; J3490; J7050; J7506; J7620; P9035; S0028

== ENCOUNTER 2017-09-28 15:02 | Day surgery (SDC) | payer MEDICARE, BC ==
[2017-09-28] MEDS ORDERED: Acetaminophen 500 MG TAB PO SCH (15:45)
[2017-09-28] MEDS ORDERED: Cefepime 2 GM, Syringe 2.5 ML in Sterile Water 10 ML SLOW IVP SCH (15:45)
[2017-09-28] MEDS ORDERED: diphenhydrAMINE 25 MG CAP PO SCH (15:45)
[2017-09-29 02:35] VITALS: BP 139/63; TEMP 98.1
[2017-09-29 02:51] LABS: Hematocrit 22.8 % (42.0-52.0); Mean Platelet Volume 8.6 fL (7.4-10.4); Red Blood Cell (RBC) Count 2.43 mill/uL (4.70-6.10); White Blood Cell (WBC) Count 0.4 thou/uL (4.8-10.8)
== END 2017-09-29 09:01 | disposition home or self-care (01) ==
LOC: ONC/OP 15:02
PROVIDERS: ATTEND Nurse Practitioner Acute Care
PROC: 30233N1 Transfusion of Nonautologous Red Blood Cells into Peripheral Vein, Percutaneous Approach (ICD-10-PCS; principal; 2017-09-28)
DX: D64.9 Anemia, unspecified (principal); D69.59 Other secondary thrombocytopenia; I10 Essential (primary) hypertension; E78.5 Hyperlipidemia, unspecified; C34.90 Malignant neoplasm of unspecified part of unspecified bronchus or lung; G47.33 Obstructive sleep apnea (adult) (pediatric); J44.9 Chronic obstructive pulmonary disease, unspecified; Z79.899 Other long term (current) drug therapy; Z79.51 Long term (current) use of inhaled steroids; Z79.82 Long term (current) use of aspirin; Z79.2 Long term (current) use of antibiotics; Z88.0 Allergy status to penicillin; Z88.8 Allergy status to other drugs, medicaments and biological substances; Z98.890 Other specified postprocedural states; Z87.891 Personal history of nicotine dependence
CPT/HCPCS: 36430; 85025; 86850; 86900; 86901; 96365; A4216; J0692; P9016; P9035

== ENCOUNTER 2017-09-30 10:46 | Day surgery (SDC) | payer MEDICARE, BC ==
[2017-09-30] MEDS ORDERED: diphenhydrAMINE 25 MG CAP PO SCH (11:30)
[2017-09-30] MEDS ORDERED: Acetaminophen 500 MG TAB PO SCH (11:30)
[2017-09-30] MEDS ORDERED: Sodium Chloride 0.9% 20 ML ONE (11:57)
[2017-09-30 16:38] VITALS: BP 160/68; TEMP 97.9
[2017-09-30 16:54] LABS: Hematocrit 24.3 % (42.0-52.0); Mean Platelet Volume 7.6 fL (7.4-10.4); Red Blood Cell (RBC) Count 2.63 mill/uL (4.70-6.10); White Blood Cell (WBC) Count 0.4 thou/uL (4.8-10.8)
[2017-09-30 18:06] LABS: Anisocytosis SLIGHT = 6-15 cells (100X) (0-5/hpf)
== END 2017-09-30 16:10 | disposition home or self-care (01) ==
LOC: ONC/OP 10:46
PROVIDERS: ATTEND Internal Medicine Hematology & Oncology
PROC: 30233R1 Transfusion of Nonautologous Platelets into Peripheral Vein, Percutaneous Approach (ICD-10-PCS; principal; 2017-09-30)
PROC: 30233N1 Transfusion of Nonautologous Red Blood Cells into Peripheral Vein, Percutaneous Approach (ICD-10-PCS; 2017-09-30)
DX: D64.9 Anemia, unspecified (principal); D69.59 Other secondary thrombocytopenia; I10 Essential (primary) hypertension; C34.90 Malignant neoplasm of unspecified part of unspecified bronchus or lung; E78.5 Hyperlipidemia, unspecified; Z79.51 Long term (current) use of inhaled steroids; Z79.82 Long term (current) use of aspirin; Z79.2 Long term (current) use of antibiotics; Z79.899 Other long term (current) drug therapy; Z88.0 Allergy status to penicillin; Z88.8 Allergy status to other drugs, medicaments and biological substances; Z95.828 Presence of other vascular implants and grafts; Z98.890 Other specified postprocedural states; Z87.891 Personal history of nicotine dependence
CPT/HCPCS: 36430; 77014; 77386; 85025; 86850; 86900; 86901; A4216; J1642; P9016; P9035

== ENCOUNTER 2017-11-26 11:35 | Outpatient (CLI) | payer MEDICARE, BC ==
--- NOTE | 2017-11-26 15:53 | PET ---
RADIONUCLIDE PET SCAN WITH CT ATTENUATION CORRECTION: HISTORY: Lung cancer. Restaging. COMPARISON: 07/21/17. FINDINGS: There is physiologic uptake throughout the enteric system and along each urinary tract. At the left hilum and left suprahilar mediastinum, no residual hypermetabolic activity is apparent. The uptake a t the medial aspect of the left supraclavicular lymph node chain has also resolved. Within the lungs , 1 area of hypermetabolic activity remains within a hazy opacity at the superior segment left lower lobe, maximum SUV is 2.6. Subtle areas of soft tissue thickness at the pleural surface of the left thorax is apparent. At the left anterior lateral pleura at the level of the cardiac apex, a focus of increased uptake shows maxi mum SUV of 3.5. More inferiorly at the left posterolateral costophrenic angle, maximum SUV is 4.6. Yet more inferiorly adjacent to the medial margin of the spleen, a focal abnormality shows a maximum SUV of 3.7. No abnormal uptake is associated with the adrenal glands. Uptake involving the testicles is symmetri c but increased, with a maximum SUV of 4.3 on the right and 4.1 on the left. Nondiagnostic CT attenuation correction images show hyperdense stones within the dependent portion of the gallbladder lumen. IMPRESSION: 1. Significant overall improvement, with resolution of mediastinal adenopathy and near-complete reso lution of parenchymal lung activity. New areas of uptake are associated with areas of soft tissue th ickening along the left pleural surface of the lower chest, as detailed above. Recurrent residual di sease must be considered. 2. Uptake involving the testicles is likely of a benign process. Given the hypermetabolic activity, however, please consider scrotal sonogram to evaluate for possible testicular masses. POS: [facility]
== END 2017-11-26 11:36 | disposition home or self-care (01) ==
LOC: PET 11:35
PROVIDERS: ATTEND Internal Medicine Hematology & Oncology
DX: C34.90 Malignant neoplasm of unspecified part of unspecified bronchus or lung (principal); R59.0 Localized enlarged lymph nodes
CPT/HCPCS: 78815; A9552

== ENCOUNTER 2018-01-03 09:30 | Observation (INO) | payer MEDICARE, BC ==
[2018-01-03 11:12] LABS: #Eosinphils 0.1 thou/uL (0.0-0.7); #Lymphocytes 0.7 thou/uL (1.20-3.40); #Monocytes 1.4 thou/uL (0.11-0.59); #Neutrophils 7.4 thou/uL (1.40-6.50); %Basophils 0.3 % (0.0-1.0); %Eosinophils 0.9 % (0.0-10.0); %Monocytes 14.9 % (0.0-10.0); %Neutrophils 76.8 % (42.0-75.0); Hemoglobin 13.7 g/dL (14.0-18.0); Mean Corpuscular HGB CONC 33.2 g/dL (32.0-36.0); Mean Corpuscular Hemoglobin 34.6 pg (27.0-31.0); Mean Platelet Volume 7.1 fL (7.4-10.4); Platelet Count 193 thou/uL (130-400); RBC Distribution Width 14.3 % (11.5-14.5); Red Blood Cell (RBC) Count 3.97 mill/uL (4.70-6.10); White Blood Cell (WBC) Count 9.7 thou/uL (4.8-10.8)
[2018-01-03] MEDS ORDERED: Methocarbamol 1 GM in Sodium Chloride 0.9% 250 ML 250 ML IVPB SCH (11:15)
[2018-01-03 11:28] LABS: Bilirubin Small (Negative); Blood, Urine Negative (Negative); Clarity CLOUDY (Clear); Glucose, Urine (Dipstick) Negative (Negative); Leukocyte Small (Negative); Nitrite Negative (Negative); Protein, Urine (Dipstick) Negative (Neg-Trace); Urobilinogen 0.2 mg/dL (0.2-1.0)
[2018-01-03 11:31] LABS: ALT (SGPT) 8 U/L (8-55); AST (SGOT) 15 U/L (5-34); Albumin 3.7 g/dL (3.4-4.8); Alkaline Phosphatase 67 U/L (40-150); Anion Gap 16 mmol/L (10-20); BUN (Urea Nitrogen) 45 mg/dL (8.4-25.7); Bilirubin, Total 0.6 mg/dL (0.2-1.2); Calc. Creatinine Clearance 0 mL/min (70-130); Calcium 10.3 mg/dL (7.8-10.44); Carbon Dioxide 29 mmol/L (23-31); Chloride 98 mmol/L (98-107); Estimated GFR-MDRD 36; Globulin 3.4 g/dL (2.4-3.5); Glucose 119 mg/dL (80-115); Potassium 4.5 mmol/L (3.5-5.1); Protein, Total 7.1 g/dL (5.8-8.1); Sodium 138 mmol/L (136-145)
[2018-01-03 11:37] LABS: Bacteria/HPF None Seen HPF (None Seen); Squamous Epithelial 0-3 HPF (0-3)
[2018-01-03 11:38] LABS: Pathc Cast-AUWi Flag 3.38 (0-2.49)
[2018-01-03 11:46] LABS: Crystals/HPF 4+ CA OXALATE HPF (Negative); Hyaline Casts/LPF 0-3 HYALINE CAST LPF (0-3 Hyaline); Other Casts/LPF None Seen LPF (0-3 Hyaline); RBC/HPF 0-3 HPF (0-3)
--- NOTE | 2018-01-03 12:38 | RAD ---
PA AND LATERAL VIEWS OF CHEST: Date: 01/03/18 HISTORY: Lung cancer. FINDINGS: Comparison made with exam of 07/28/17. A right-sided Port-A-Cath is again seen. The heart size is stable. A moderate size left pleural effus ion is present. No pneumothoraces are seen. Right lung is unremarkable. There are degenerative change s in the spine. IMPRESSION: Moderate left pleural effusion. POS: [facility]
[2018-01-03] MEDS ORDERED: Nitrofurantoin Monohyd/M-Cryst 100 MG CAP PO ONE (12:45)
--- NOTE | 2018-01-03 12:50 | CT ---
CT OF THE ABDOMEN AND PELVIS: Date: 01/03/18 COMPARISON: PET CT dated 11/26/17. HISTORY: Left-sided flank pain, left-sided abdominal pain. TECHNIQUE: Serial axial CT imaging obtained at 5 mm intervals from the lung bases through the pubic symphysis wi thout contrast. Coronal reformatted imaging obtained. FINDINGS: There is an incompletely imaged pleural effusion on the left, which on banquet kitchen supervisor imaging appears large. T his has progressed markedly since the PET CT performed 11/26/17. Pleural based masses are noted on th e left, measuring up to 5.8 cm in transverse dimension, increased from 2.4 cm on the 11/26/17 exam. No free intraperitoneal air is noted. Limited assessment of the liver and spleen are unremarkable. Pancreas is grossly unremarkable. Cholel ithiasis is noted. No adrenal mass identified on either side. There are bilateral retrocrural masses suggesting retrocrural adenopathy, new, left greater than righ t. This includes a lesion in the left retrocrural space adjacent to the T12 vertebral body measuring 5.2 cm on the left. There are masses identified medial and superior to the renal vasculature on the left, new, suggesting metastatic lymph nodes, including a mass on image 17 measuring 3.0 cm. New left periaortic adenopath y noted within the retroperitoneum, with nodes measuring up to 1.7 cm on axial image 24. There is a prominent inguinal hernia on the left which contains a significant portion of the urinary bladder, as well as significant fat. There is sigmoid diverticulosis with no evidence for sigmoid diverticulitis. Limited evaluation of th e bowel demonstrates no evidence for bowel obstruction or bowel inflammatory change. The appendix is unremarkable. The left kidney is atrophic as before, and demonstrates a nonobstructing stone within the lower pole measuring in the 9.0 mm range. There is no evidence for obstructive uropathy on either side. There is a punctate nonobstructing stone in the upper pole of the right kidney. Limited assessment of the vascular structures demonstrates scattered atherosclerotic calcification of the abdominal aorta and its branches. There is mild aneurysmal dilatation of the distal infrarenal a rosalie measuring in the 2.9 x 3.0 cm range. Limited assessment of the prostate gland demonstrates prominence of the prostate. Review of the osseous structures demonstrates degenerative change involving bilateral sacroiliac join ts with anterior osteophyte formation. There is degenerative change involving the pubic symphysis. There is multilevel lower lumbar spine fa cet hypertrophy. There is no discrete worrisome lytic or blastic bone lesion. IMPRESSION: 1. Large left pleural effusion, progressed significantly since the prior exam. New/enlarging pleural based masses are noted within the left lung base, evidence of marked interval progression of maligna ncy. In addition, there is new retrocrural lymphadenopathy bilaterally, new retroperitoneal adenopath y, and masses in the left perirenal region, all suspicious for marked interval progression of disease /malignancy. 2. No evidence for obstructive uropathy. 3. Bilateral nonobstructing renal stones. Results discussed with Dr. Sharma at 1230 hours on 01/03/18. CODE CR. POS: [facility]
[2018-01-03] MEDS ORDERED: Guaifenesin DM 100-10/5 ML UDCUP PO PRN (13:49)
[2018-01-03] MEDS ORDERED: Senokot 8.6 MG TAB PO PRN (13:49)
[2018-01-03] MEDS ORDERED: traMADol HCl 50 MG TAB PO PRN (13:49)
[2018-01-03] MEDS ORDERED: Acetaminophen 325 MG TAB PO PRN (13:49)
[2018-01-03] MEDS ORDERED: Zolpidem Tartrate 5 MG TAB PO PRN (13:49)
--- NOTE | 2018-01-03 14:38 | HP ---
REASON FOR ADMISSION: Intractable back pain, likely recurrence of small cell lung cancer, worsening pleural effusion with hypoxia. HISTORY OF PRESENT ILLNESS: The patient gives history of having back pain which started around a week back. He went to see his primary care physician last Thursday and was given a prescription for baclofen. He was told to come back on Thursday if the pain did not get better. He promptly went on Thursday and was given Ultram in addition to the baclofen that he was on. He has had an x-ray of the ribs done on the which were negative. Prior to any of this, he was having dry coughing spells from the second week of this month. He was given a steroid pack and codeine. This did relieve his dry coughing spells. He has no complaints of dizziness or chest pain or palpitations. On arrival, had systolic blood pressures in the 80s here and was desating as well in the ER. He has had a CT of the abdomen and pelvis done, which shows findings suggestive of possible recurrence of his small cell lung cancer. PAST MEDICAL AND SURGICAL HISTORY: History of small cell lung cancer diagnosed in 07/2017. He has had 4 rounds of chemotherapy and 32 days of radiation therapy, which she completed by October. He has had a PET scan done on 2017, which revealed no metastasis and he was told he is in remission. He felt good for 2 weeks, but then all his other symptoms started as mentioned above. PAST MEDICAL HISTORY/PAST SURGICAL HISTORY: There is likely COPD, no other surgical history, mild hypertension, dyslipidemia, has had MediPort placement. CURRENT MEDICATIONS: Baclofen p.r.n. from Thursday, Ultram from Thursday, Tylenol with codeine p.r.n., hydrochlorothiazide 25 mg daily, Pravachol 10 mg p.o. at bedtime, albuterol inhaler, Spiriva inhaler, and Advair Diskus inhalers. ALLERGIES: AMOXICILLIN and VARENICLINE. PERSONAL HISTORY: Quit smoking after he was diagnosed with cancer in July of last year. He has smoked for nearly 40 years, one pack a day, does not abuse alcohol or drugs. Lives with his . FAMILY HISTORY: Mother at the age of 84 years. Father at the age of 77 years. She has had history of colon cancer. REVIEW OF SYSTEMS: The following complete review of systems was negative, unless otherwise mentioned in the HPI or below: Constitutional: Weight loss or gain, ability to conduct usual activities. Skin: Rash, itching. Eyes: Double vision, pain. ENT/Mouth: Nose bleeding, neck stiffness, pain, tenderness. Cardiovascular: Palpitations, dyspnea on exertion, orthopnea. Respiratory: Shortness of breath, wheezing, cough, hemoptysis, fever or night sweats. Gastrointestinal: Poor appetite, abdominal pain, heartburn, nausea, vomiting, constipation, or diarrhea. Genitourinary: Urgency, frequency, dysuria, nocturia. Musculoskeletal: Pain, swelling. Neurologic/Psychiatric: Anxiety, depression. Allergy/Immunologic: Skin rash, bleeding tendency. PHYSICAL EXAMINATION: GENERAL: The patient is a 67-year-old male, who is currently not in any acute distress. VITAL SIGNS: Blood pressure currently 106/60, on arrival was 90/55, pulse 102 per minute, respiratory rate 20 per minute, temperature 97.6 degrees Fahrenheit , saturating 92% on 2 liters nasal cannula, was 87% on room air on arrival. NECK: Supple, no elevated JVD. HEENT: Eyes: Extraocular muscles intact. Pupils reacting to light. Oral cavity mucous membranes are dry. No exudates or congestion. CARDIOVASCULAR: S1, S2 heard. Regular rhythm. RESPIRATORY: Air entry is decreased in the left infrascapular area. No wheezes or rhonchi. ABDOMEN: Soft, bowel sounds heard. No tenderness, rigidity or guarding. EXTREMITIES: Mild edema in the lower extremities. CENTRAL NERVOUS SYSTEM: No gross focal deficits seen. The patient is alert, awake, oriented well. PSYCHIATRIC: The patient's mood is euthymic. No hallucinations or delusions. LABORATORY AND X-RAY FINDINGS: BUN 45, creatinine 1.9, serum glucose 119, albumin 3.7. Liver enzymes are within normal limits. H&H 13 and 41, platelet count is 193, white count of 9.7, MCV is 104 with 76% neutrophils. Stat CT of the abdomen and pelvis done, which shows a large left pleural effusion, which has progressed when compared to prior exam. There is also a new/enlarging pleural based masses seen in the left lung base in addition there is new retrocrural lymphadenopathy bilaterally, new retroperitoneal adenopathy and masses in the left perirenal region, all suspicious for possible progression of malignancy. Chest x-ray done shows left pleural effusion. EKG done shows normal sinus rhythm at 76 beats per minute. CLINICAL IMPRESSION AND PLAN: The patient will be under observation on oncology floor for likely recurrence of his small cell lung cancer. He was hypotensive and hypoxic on arrival and the plan is to gently hydrate him. He has acute kidney injury likely from poor oral intake with possible medications that could have caused his acute kidney injury. He has received 1 liter of fluid in the ER and will continue him on 70 mL per hour. We will consult Dr. Castle for likely thoracentesis for comfort and to relieve his pain, and Dr. Cobos, his oncologist will be consulted as well. We will continue to closely monitor him on oncology floor. He will be on morphine p.r.n., lidocaine, transdermal patch, and Ultram p.r.n. for pain. We will closely monitor him on oncology floor. RONDA
--- NOTE | 2018-01-03 14:58 | PDOC.THORA ---
Thoracentesis Procedure Note - Procedure Date: 01/03/18 Time: 14:56 - PreProcedure Diagnosis: Left pleural effusion, history of small cell lung cancer - PostProcedure Diagnosis: Left pleural effusion, bloody 1700 ml - Description Patient tolerated procedure: well Procedure in Details: Informed consent obtained from patient. Risks explained. He agreed to proceed. Chlorohexadine scrub to 5th 6th interspace posteriorly on Left, after effusion had been identified under ultrasound guidance. Local applied. [id number] catheter inserted into pleural space. 1700ml of bloody pleural fluid removed and sent for study.
[2018-01-03 15:02] LABS: Fluid, pH - Pleural Fld 7.34
[2018-01-03 15:08] LABS: Fluid, Triglycerides 31 mg/dL (Not Available); Pleural Fluid, Amylase Less than 30 U/L (Not Available); Pleural Fluid, Glucose 42 mg/dL; Pleural Fluid, LDH 2629 U/L (Not Available); Pleural Fluid, Protein 4.6 g/dL
[2018-01-03 15:29] LABS: BF Color Red; BF WBC/Nonhematics Ct. - Manua 1963 /cumm; Body Fluid Source PLEURAL FLUID; Clarity Cloudy/Turbid (Clear); RBC Count-Automated 187000 /cumm; Tube # EDTA
[2018-01-03 15:32] LABS: BF Segmented Neutrophils 2 %; Cell Count Non Hematic 94 %; Lymphocytes 4 %
[2018-01-03 16:08] VITALS: BMI 30.1
--- NOTE | 2018-01-03 17:01 | CON ---
DATE OF CONSULTATION: 01/03/2018 CONSULTING PHYSICIAN: Angel Smallwood M.D. REASON FOR CONSULTATION: Chest pain and large left-sided pleural effusion. HISTORY OF PRESENT ILLNESS: The patient is a 67-year-old male who is well known to me from previous workup for small cell lung cancer in 07/2017. He presents to the emergency room with a 3-4 day histo ry of increasing shortness of breath and left-sided chest pain/abdominal pain. He says he took 4 cou rses of chemotherapy for his small cell lung cancer. He also has finished radiation therapy. He was told back in November that there was no evidence of tumor recurrence. I went back and reviewed previ ous CT scan at that time, he had a small pleural effusion with some study. He also uptake in some ly mph nodes along the upper abdominal region, which is consistent with CT scan performed today. A ches t x-ray performed in the ER showed a fairly substantial left-sided pleural effusion. I was asked to see him in that regard. He has had no fever, chills, nausea or vomiting. PAST MEDICAL HISTORY: 1. Small cell lung cancer. 2. COPD. 3. Hyperlipidemia. PAST SURGICAL HISTORY: Bronchoscopy and MediPort insertion. MEDICATIONS PRIOR TO ADMISSION: Tylenol #3, Ambien, Spiriva, Pravachol, Advair, Zyrtec, aspirin. SOCIAL HISTORY: Former smoker. Does not consume alcohol. Does not use illicit substances. FAMILY MEDICAL HISTORY: Unremarkable. REVIEW OF SYSTEMS: Twelve point review of systems otherwise negative. PHYSICAL EXAMINATION: VITAL SIGNS: Blood pressure running systolic 90s-102, pulse 85, respirations 18, O2 sat 96% on 2 lit ers. GENERAL: He is alert and oriented, in no distress. HEENT: Pupils react. Sclerae are anicteric. Oropharynx clear. NECK: No adenopathy, no JVD, no bruits. LUNGS: He has diminished breath sounds and dullness to percussion in left base, right side is clear. CARDIOVASCULAR: S1, S2 regular without murmur. ABDOMEN: Soft, nontender, nondistended. No hepatosplenomegaly. EXTREMITIES: No clubbing, cyanosis, or edema. No skin changes. NEUROLOGIC: Demonstrates no focality. LABORATORY DATA: Sodium 130, potassium 4.5, chloride 98, CO2 29, BUN 45, creatinine 1.9, glucose 119 . White blood cell count 9.7, hemoglobin 13.7, hematocrit 41.4, platelet count 193. Urinalysis show ed 4-6 white blood cells. X-RAYS: Chest x-ray was reviewed by me personally shows substantial left-sided pleural effusion. I also reviewed his abdominal CT and reviewed the radiologist's report on that. ASSESSMENT: 1. Left pleural effusion, which is likely secondary to recurrent small cell lung cancer. 2. Chest pain which is likely secondary to the amount of pleural fluid. 3. Small cell lung cancer. 4. History of hypertension. 5. History of hyperlipidemia. 6. Small increase in white cells in urine. RECOMMENDATIONS: Diagnostic and therapeutic left thoracentesis - see separate operative note. 1700 mL of pleural fluid was removed and sent for studies. The patient can likely go home tomorrow. He is being placed in observation status tonight. Oncology has been consulted, but will likely await th e results of pleural fluid before giving his final answers. This patient 70 minutes time was spent with the patient and greater than 50% of the time was spent wi th the patient and/or on his hospital floor.
--- NOTE | 2018-01-03 17:17 | RAD ---
2 VIEW CHEST: Date: 01/03/18 HISTORY: Post thoracentesis follow-up. COMPARISON: 01/03/18 at 1219 hours. FINDINGS: There has been reduction in size of the left effusion, although there continues to be left effusion w ith elevated left hemidiaphragm. The stomach bubble is located in the lower chest, indicating elevate d left hemidiaphragm. The posterior gutter is blunted, consistent with small residual effusion. No de tectable pneumothorax. The lungs otherwise appear clear. MediPort catheter is unchanged. IMPRESSION: 1. Elevated left hemidiaphragm. 2. Small residual effusion on the left. POS: [facility]
[2018-01-03] MEDS: Sodium Chloride 0.9% 1,000 ML IV SCH (18:07)
[2018-01-03] MEDS: Mometasone/Formoterol 120 PUFF INHALER INH SCH (19:02)
[2018-01-03] MEDS ORDERED: Lidocaine Patch Removal 1 EACH TOP SCH (21:00)
[2018-01-03] MEDS ORDERED: Famotidine 20 MG TAB PO SCH (21:00)
[2018-01-03] MEDS: HYDROcodone/Acetaminophen 10/325 mg Tablet PO PRN (23:19)
[2018-01-04 05:29] LABS: #Eosinphils 0.1 thou/uL (0.0-0.7); #Lymphocytes 0.7 thou/uL (1.20-3.40); #Monocytes 1.1 thou/uL (0.11-0.59); #Neutrophils 5.7 thou/uL (1.40-6.50); %Basophils 0.2 % (0.0-1.0); %Eosinophils 1.3 % (0.0-10.0); %Lymphocytes 9.4 % (21.0-51.0); %Monocytes 14.6 % (0.0-10.0); %Neutrophils 74.4 % (42.0-75.0); Hemoglobin 12.9 g/dL (14.0-18.0); Mean Corpuscular Hemoglobin 34.5 pg (27.0-31.0); Mean Platelet Volume 7.6 fL (7.4-10.4); Platelet Count 198 thou/uL (130-400); RBC Distribution Width 14.2 % (11.5-14.5); Red Blood Cell (RBC) Count 3.75 mill/uL (4.70-6.10); White Blood Cell (WBC) Count 7.7 thou/uL (4.8-10.8)
[2018-01-04 05:30] LABS: Anion Gap 13 mmol/L (10-20); BUN (Urea Nitrogen) 47 mg/dL (8.4-25.7); Calc. Creatinine Clearance 80 mL/min (70-130); Calcium 9.6 mg/dL (7.8-10.44); Carbon Dioxide 26 mmol/L (23-31); Chloride 102 mmol/L (98-107); Estimated GFR-MDRD 60; Glucose 105 mg/dL (80-115); Potassium 4.8 mmol/L (3.5-5.1); Sodium 136 mmol/L (136-145)
[2018-01-04] MEDS: Mometasone/Formoterol 120 PUFF INHALER INH SCH (07:35)
[2018-01-04] MEDS: HYDROcodone/Acetaminophen 10/325 mg Tablet PO PRN (08:40)
[2018-01-04] MEDS ORDERED: Lidocaine 5% Patch TD SCH (09:00)
[2018-01-04] MEDS ORDERED: Enoxaparin Sodium 40 MG/0.4 ML SYRINGE SC SCH (09:00)
[2018-01-04] MEDS ORDERED: Spiriva 18 MCG CAP (Box of 5 Caps) INH SCH (09:00)
--- NOTE | 2018-01-04 09:44 | PRG ---
DATE OF SERVICE: 01/04/2018 SUBJECTIVE: He is still having chest pain on the left side. He said this kept him up most of the ni ght. On his post-thoracentesis x-ray, the left effusion is better, but he has gross elevation of his left hemidiaphragm which may be secondary to a phrenic nerve paralysis. PHYSICAL EXAMINATION: VITAL SIGNS: Temperature 98.2, pulse 102, respiratory rate 20, O2 sat 93%, blood pressure 101/63. HEENT: Unremarkable. NECK: No JVD. LUNGS: Diminished breath sounds on the left compared to right. CARDIAC: S1 and S2 regular. ABDOMEN: Soft. EXTREMITIES: No edema. LABORATORY DATA: White blood cell count 7.7, hematocrit 39, and platelet count 198. Sodium 136, pot assium 4.8, chloride 102, CO2 26, BUN 47, creatinine 1.2, glucose 105. Pleural fluid demonstrated el evated white cells. Total protein 4.6, LDH 2629. Glucose of 42. Cytology is pending. ASSESSMENT: 1. Suspected malignant left pleural effusion. 2. 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 3. Small cell lung cancer with pain. RECOMMENDATIONS: 1. Oncology opinion. 2. Pain control. 3. If effusion recurs, suggest left PleurX catheter placement. 4. The patient can go home today from my standpoint and follow up in the office in a couple of weeks with an x-ray.
--- NOTE | 2018-01-04 10:23 | CON ---
DATE OF CONSULTATION: 01/04/2018 REASON FOR CONSULTATION: Lung cancer. HISTORY OF PRESENT ILLNESS: Mr. 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 He was treated with chemo and radiation, it was completed in 10/2017. Over the past few weeks, the patient has begun to have a cough with shortness of breath significantly worsened over the last week. He saw his primary care a nd was treated with a pulled muscle. He became significantly worse over the weekend and presented to the emergency room for evaluation. On scan, it was noted to have a large left pleural effusion, he has a left pleural mass measuring 5.8 cm with a retrocrural lymphadenopathy. Dr. Castle was consult ed and performed a thoracentesis removing 1.7 mL of pleural fluid. Cytology is currently pending. Kamille headley continues to have pain in the left chest wall. Shortness of breath has improved. We were ask ed to see the patient regarding further options. PAST MEDICAL HISTORY: 1. Limited stage small cell carcinoma. 2. Hypertension. 3. Chronic obstructive pulmonary disease. PAST SURGICAL HISTORY: MediPort placement. ALLERGIES: No known drug allergies. HOME MEDICATIONS: 1. ProAir daily. 2. Valsartan/hydrochlorothiazide daily. 3. Aspirin 81 mg daily. 4. Pravachol daily. FAMILY HISTORY: His father had colon cancer. SOCIAL HISTORY: , has 2 children, lives with his spouse, 85-mhal-wril history of smoking, no alcohol, or illicit drug use. REVIEW OF SYSTEMS: Constitutional: No fever, chills, night sweats, recent weight loss, or gain. Ey es: No blurred or double vision. ENT: No pain, hoarseness, sore throat, or dysphagia. Cardiovascu lar: No chest pain, palpitations, or syncope. Respiratory: Positive for shortness of breath, dyspn ea on exertion, and cough. Gastrointestinal: No nausea, vomiting, diarrhea, constipation, or abdomi nal pain. Genitourinary: No dysuria or hematuria. Musculoskeletal: Positive for left back pain. Skin: No rash or pruritus. Hematologic: No bleeding, bruising, or clotting. Neurologic: No weakn ess, headache, numbness, tingling, or seizure activity. Psychiatric: No anxiety or depression. PHYSICAL EXAMINATION: VITAL SIGNS: Temperature is 98.0, pulse is 100, respiratory rate 19, BP is 119/70, is 93% on room ai r. GENERAL: Well-developed, well-nourished male in no acute distress. HEENT: Normocephalic, atraumatic. Pupils are equal and reactive to light. NECK: Supple. CARDIOVASCULAR: Regular rate and rhythm. LUNGS: He has diminished posterior in the left lung. GASTROINTESTINAL: Abdomen is soft, nontender, bowel sounds are positive. EXTREMITIES: No clubbing, cyanosis, or edema. SKIN: No rash. HEMATOLOGIC: No petechia or purpura. NEUROLOGICAL: Nonfocal. PSYCHIATRIC: Patient is alert and oriented and appropriate. PERTINENT LABORATORY AND X-RAYS: Current WBCs are 7.7, hemoglobin 12.9, hematocrit 39.1, platelet co unt is 198,000. Sodium is 136, potassium 4.8, chloride 102, CO2 is 26, BUN 47, creatinine 1.21, calc ium 9.6. CT scan per HPI. ASSESSMENT: 1. Recurrent small cell carcinoma. 2. Malignant pleural effusion, status post thoracentesis. DISCUSSION: Patient has recurred disease within 2 months of treatment. He would be considered carbo platin resistant. He is a candidate for further chemotherapy and possible radiation. He will follow up with Dr. Cobos this week to discuss further treatment in detail. Thank you for the consult.
[2018-01-04] MEDS: Sodium Chloride 0.9% 1,000 ML IV SCH (10:53)
[2018-01-04 12:22] VITALS: BP 109/69; TEMP 97.6
--- NOTE | 2018-01-04 12:41 | PDOC.PN ---
- Subjective Encounter Start Date: 01/04/18 Encounter Start Time: 08:45 Subjective: no sob, says his pain is slowly coming back and thinks his effusion is comi -: -ng back as well. He is sitting in chair, had his breakfast, is amb - Objective MAR Reviewed: Yes Vital Signs & Weight: Vital Signs (12 hours) Temp Pulse Resp BP BP Pulse Ox 01/04/18 12:21 97.6 F 96 12 109/69 94 L 01/04/18 12:00 97.4 F L 96 16 92/60 92 L 01/04/18 08:09 98 F 100 19 119/70 93 L 01/04/18 08:00 98.0 F 100 19 119/70 93 L 01/04/18 07:34 100 16 94 L 01/04/18 04:47 98.2 F 102 H 20 101/63 93 L Weight Admit Weight 209 lb 14.4 oz Weight 209 lb 14.4 oz I&O: 01/03/18 01/04/18 01/05/18 06:59 06:59 06:59 Intake Total 1860 Balance 1860 Result Diagrams: 01/04/18 05:01 01/04/18 05:01 Phys Exam - Physical Examination HEENT: PERRLA, moist MMs Neck: no JVD, supple Respiratory: no wheezing, no rales Cardiovascular: RRR, no significant murmur Gastrointestinal: soft, non-tender, positive bowel sounds Musculoskeletal: no edema, pulses present Neurological: non-focal, moves all 4 limbs Psychiatric: A&O x 3 Dx/Plan (1) Small cell lung cancer Code(s): C34.90 - MALIGNANT NEOPLASM OF UNSP PART OF UNSP BRONCHUS OR LUNG Status: Acute Qualifiers: Laterality: left Qualified Code(s): C34.92 - Malignant neoplasm of unspecified part of left bronchus or lung Comment: with recurrence, s/p left thoracentesis with removal of 1.7lts blood tinge effusion (2) HTN (hypertension) Code(s): I10 - ESSENTIAL (PRIMARY) HYPERTENSION Status: Chronic Qualifiers: Hypertension type: essential hypertension Qualified Code(s): I10 - Essential (primary) hypertension (3) Dyslipidemia Code(s): E78.5 - HYPERLIPIDEMIA, UNSPECIFIED Status: Chronic (4) TESSA (acute kidney injury) Code(s): N17.9 - ACUTE KIDNEY FAILURE, UNSPECIFIED Status: Acute (5) COPD (chronic obstructive pulmonary disease) Status: Chronic Qualifiers: COPD type: chronic bronchitis (6) CHRIS (obstructive sleep apnea) Code(s): G47.33 - OBSTRUCTIVE SLEEP APNEA (ADULT) (PEDIATRIC) Status: Chronic - Plan hemostable -: d/w [employer]ION[employer] MARKETING ANALYST for , is ok for pt to go home -: to f/u with as adv -: adv to drink atleast 2 liters of free water at home -: dc home * . Review of Systems - Medications/Allergies Allergies/Adverse Reactions: Allergies Allergy/AdvReac Type Severity Reaction Status Date / Time amoxicillin Allergy Verified 07/23/17 13:15 diphenhydramine Allergy Verified 01/03/18 16:09 [From Benadryl] varenicline [From Chantix] Allergy Verified 07/23/17 13:15
--- NOTE | 2018-01-05 00:21 | DIS ---
DATE OF ADMISSION: 01/03/2018 DATE OF DISCHARGE: 01/04/2018 DISCHARGE DISPOSITION: To home. PRIMARY DISCHARGE DIAGNOSES: Likely progression of a small cell lung cancer, left lung; acute kidney injury with dehydration, resolved. SECONDARY DISCHARGE DIAGNOSES: Hypertension, dyslipidemia, chronic obstructive pulmonary disease, an d obstructive sleep apnea. PROCEDURES DONE DURING HOSPITALIZATION: The patient has had left thoracentesis done with removal of 1.7 liters of bloody pleural fluid removed on 01/03/[address] Castle. Abdominal pelvic CAT scan d one on the day of admission showed large left pleural effusion, new enlarging pleural based masses se en in the left lung base, evidence of marked interval progression of malignancy. He also had new ret rocrural lymphadenopathy bilaterally, new retroperitoneal lymphadenopathy, masses in the left periren al region, all suspicious for malignancy. H&H 12 and 39, platelet count 198 with a white count of 7. 7, MCV is 104. BUN and creatinine on admission was 45 and 1.9, discharge BUN and creatinine is 47 an d 1.2. Pleural was cloudy/turbid with 187,000 rbc's, 1963 wbc's, LDH of 2629. Pleural fluid pH was 7.34. Pleural fluid glucose was 42. INPATIENT CONSULTS: Dr. Castle for Pulmonology. Ms. Ani Sawant, nurse practitioner for Dr. Rebolledo er. DISCHARGE MEDICATIONS: Albuterol inhaler q.6 hourly p.r.n., aspirin 81 mg p.o. at bedtime, lidocaine transdermal patch daily, Pravachol 40 mg p.o. daily, Spiriva inhaler 2 puffs daily. ALLERGIES: AMOXICILLIN, DIPHENHYDRAMINE and VARENICLINE. DISCHARGE PLAN: The patient to follow up with Dr. Cobos as advised and Dr. Castle in 1 week. BRIEF COURSE DURING HOSPITALIZATION: The patient initially came to ER with complaints of lower back pain on the left side. This was getting worse despite visiting his primary care physician twice. He has known history of small cell lung cancer and apparently was in remission with a follow up PET sca n done on the of this year, which showed the patient to be in complete remission per patient. O n arrival, he has had CT of the abdomen and pelvis along with chest x-ray done, which showed left ple ural effusion. The CAT scan showed progression of a possible small cell lung cancer. In view of him being symptomatic with pain and hypoxia on arrival, the patient was admitted to medical floor. He h as had consultation with Dr. Castle. He has had nearly 1700 mL of bloody pleural fluid from the lef t side was removed. The histopathology is pending on this one. The patient has what appears to be a metastasis on the CAT scan. He was evaluated by Ms. Ani Sawant, nurse practitioner for Dr. Juice estes. The patient needs to follow up with Dr. Cobos as advised and Dr. Castle in 1 week. If the pat ient were to reaccumulate fluid, he likely will need a PleurX catheter. He needs to follow up with Lukas Castle with a followup x-ray as advised by him. Please see a [id number] documentation on [facility] for the day of discharge.
--- NOTE | 2018-01-09 13:22 | EKG ---
Test Reason : Blood Pressure : / mmHG Vent. Rate : 096 BPM Atrial Rate : 096 BPM P-R Int : 126 ms QRS Dur : 090 ms QT Int : 344 ms P-R-T Axes : 015 038 125 degrees QTc Int : 434 ms Normal sinus rhythm Nonspecific T wave abnormality Abnormal ECG Confirmed by ZAIRA STEPHENS ([id number]), mapping editor DEREK JOHNSON ([id number]) on 01/09/2018 1:22:30 PM Referred By: Confirmed By:ZAIRA STEPHENS
== END 2018-01-04 12:25 | disposition home or self-care (01) ==
LOC: ERS 09:30 → T4-B 15:23
PROVIDERS: ADMIT Internal Medicine; ATTEND Internal Medicine
PROC: 0W9B3ZX Drainage of Left Pleural Cavity, Percutaneous Approach, Diagnostic (ICD-10-PCS; principal; 2018-01-03)
DX: C38.4 Malignant neoplasm of pleura (principal); C34.92 Malignant neoplasm of unspecified part of left bronchus or lung; N17.9 Acute kidney failure, unspecified; E86.0 Dehydration; I10 Essential (primary) hypertension; E78.5 Hyperlipidemia, unspecified; J44.9 Chronic obstructive pulmonary disease, unspecified; G47.33 Obstructive sleep apnea (adult) (pediatric); R07.9 Chest pain, unspecified; R09.02 Hypoxemia; Z79.2 Long term (current) use of antibiotics; Z79.899 Other long term (current) drug therapy; Z88.0 Allergy status to penicillin; Z88.8 Allergy status to other drugs, medicaments and biological substances; Z98.890 Other specified postprocedural states; Z92.3 Personal history of irradiation; Z92.21 Personal history of antineoplastic chemotherapy; Z87.891 Personal history of nicotine dependence
CPT/HCPCS: 32554; 71046; 74176; 80048; 80053; 82150; 82945; 83615; 83986; 84157; 84478; 85025 ×2; 86850; 86900; 86901; 87070; 87086; 87116; 87205; 87206 ×2; 88112; 88305; 89051; 93005; 94640 ×4; 96361 ×3; 96365; 99284; G0378; 36415; 81003; 81015; 85060; J1650; J2270; J2800; J7050; J7620

== ENCOUNTER 2018-01-05 09:43 | Outpatient (CLI) | payer MEDICARE, BC ==
--- NOTE | 2018-01-05 12:33 | CT ---
CT THORAX WITH IV CONTRAST: Date: 01-05-18 History: Malignant neoplasm left main bronchus. Small cell lung cancer. Abnormal chest x-ray on . Comparison: PET CT examination on 11-26-[address] on 07-21-17. FINDINGS: There is a lobulated margined area of pleural fluid in the left hemithorax, probably at the left lung base, some of which appears loculated. There is associated passive atelectasis. There is also decrea sed attenuation in the prevascular space which is likely related to pleural fluid abutting the medias tinum. There are pleural based masses at the posterior and posterior medial aspect of the left lung base whi ch are larger in size compared to the prior PET CT examination. These masses were seen on the recent noncontrast CT abdomen on 01-03-18. The largest mass which likely represents two contiguous masses see n posteriorly on the left along the pleural surface measures approximately 8.8 cm x 3.4 cm. Additiona l areas of nodular pleural thickening are also seen at the posterior left lung base. There is an enla rged mass seen posterior to the descending thoracic aorta at the T8-9 level which may represent pleur al based masses or enlarged lymph nodes. The largest pleural based nodular density in this region whi ch abuts the vertebral body measures 3.3 cm x 2.2 cm. There is an enlarged lower mediastinal right periaortic lymph node measuring 1.6 cm in short axis dim ension. There are enlarged left periaortic lymph nodes which also abut and appear to involve the jazz of the left hemidiaphragm, the largest measuring approximately 3.2 cm in maximal dimensions with smaller lef t periaortic lymph nodes also present noted on prior noncontrast CT exam. There are spiculated irregular densities within the left lung apex and left upper lobe which are unch anged when compared to the prior PET CT examinations including study in 2017. There does appear to be generalized volume loss of the left upper lobe. There is a pleural based density again seen along the major fissure on the right which is a stable fi nding compared to the most recent PET CT exam. There is a mildly prominent left epicardial lymph node. Vascular calcifications are seen in the thoracic aorta. Right subclavian Mediport catheter is present . There is partial visualization of gallbladder calculi. There is atrophy of the left kidney with subce ntimeter, too small to characterize, hyperdense lesions in the visualized superior pole left kidney. IMPRESSION: 1. Considerable interval enlargement of pleural based masses at the left lung base compared to PET CT exam on 11-26-17. There are additional small pleural based soft tissue. 2. Masses posterior to the descending thoracic aorta and in a right paraaortic location likely relate d to enlarged lymph nodes with a few mildly prominent left epicardial lymph nodes as well as left par aaortic lymph nodes with masses involving the left jazz of the hemidiaphragm. 3. Moderate sized left pleural effusion with lobulated margins, and some of the pleural fluid may be loculated. There is fluid adjacent to the mediastinum on the left with suggestion of fluid in the reg ion of the prevascular space. 4. Stable irregular spiculated densities within the left upper lobe with stable area of what appears to be mild nodular pleural thickening involving the superior aspect of the right major fissure. 5. Cholelithiasis. 6. Atrophy of the left kidney with subcentimeter too small to characterize hypodense lesion seen. 7. No lytic or sclerotic osseous lesions are seen. POS: [facility]
[2018-01-05] MEDS ORDERED: Iopamidol 370 76% 100 ML VIAL ONE (12:45)
== END 2018-01-05 09:44 | disposition home or self-care (01) ==
LOC: CT 09:43
PROVIDERS: ATTEND Internal Medicine Hematology & Oncology
DX: C34.02 Malignant neoplasm of left main bronchus (principal); K80.20 Calculus of gallbladder without cholecystitis without obstruction; N26.1 Atrophy of kidney (terminal); J90 Pleural effusion, not elsewhere classified
CPT/HCPCS: 71260

== ENCOUNTER 2018-01-15 11:02 | Inpatient (IN) | payer MEDICARE, BC ==
[2018-01-15 11:39] LABS: #Eosinphils 0.1 thou/uL (0.0-0.7); #Lymphocytes 0.5 thou/uL (1.20-3.40); #Monocytes 0.7 thou/uL (0.11-0.59); %Basophils 0.6 % (0.0-1.0); %Eosinophils 1.3 % (0.0-10.0); %Lymphocytes 6.9 % (21.0-51.0); %Monocytes 9.9 % (0.0-10.0); %Neutrophils 81.3 % (42.0-75.0); Hemoglobin 10.8 g/dL (14.0-18.0); INR-International Normal Ratio 1.2; Mean Corpuscular HGB CONC 32.5 g/dL (32.0-36.0); Mean Corpuscular Hemoglobin 31.3 pg (27.0-31.0); Mean Corpuscular Volume 96.4 fl (80.0-94.0); Mean Platelet Volume 6.7 fL (7.4-10.4); PTT 36.1 SEC (22.9-36.1); Platelet Count 192 thou/uL (130-400); Prothrombin Time 15.1 SEC (12.0-14.7); RBC Distribution Width 13.5 % (11.5-14.5); Red Blood Cell (RBC) Count 3.46 mill/uL (4.70-6.10); White Blood Cell (WBC) Count 7.3 thou/uL (4.8-10.8)
[2018-01-15 11:46] LABS: ALT (SGPT) 13 U/L (8-55); AST (SGOT) 23 U/L (5-34); Albumin 3.2 g/dL (3.4-4.8); Alkaline Phosphatase 63 U/L (40-150); Anion Gap 15 mmol/L (10-20); BUN (Urea Nitrogen) 19 mg/dL (8.4-25.7); Bilirubin, Total 0.3 mg/dL (0.2-1.2); CK (CPK) 161 U/L (30-200); Calc. Creatinine Clearance 0 mL/min (70-130); Calcium 9.7 mg/dL (7.8-10.44); Carbon Dioxide 27 mmol/L (23-31); Chloride 102 mmol/L (98-107); Estimated GFR-MDRD 75; Globulin 3.1 g/dL (2.4-3.5); Glucose 122 mg/dL (80-115); Lipase 5 U/L (8-78); Potassium 4.2 mmol/L (3.5-5.1); Protein, Total 6.3 g/dL (5.8-8.1); Sodium 140 mmol/L (136-145)
[2018-01-15 11:49] LABS: CKMB 2.4 ng/mL (0-6.6); Troponin I Less than 0.010 ng/mL (< 0.028)
--- NOTE | 2018-01-15 13:37 | RAD ---
PORTABLE AP CHEST XRAY: DATE: 01/15/18. HISTORY: Dyspnea. History of small cell lung cancer and left pleural effusion which was drained 2 weeks ago. The patient now presents with back pain and difficulty breathing. COMPARISON: 01/03/18. FINDINGS: There has been interval increase in pleural and parenchymal changes involving the left hemithorax lik radha related to a large left pleural effusion and atelectasis which occupies at least 2/3 of the left hemithorax and only a small amount of aerated lung involving the left lung apex and left upper lobe. The right lung is clear. Right subclavian MediPort catheter is stable in position. There is persis tent elevation of the left hemidiaphragm. The left cardiac border is obscured. IMPRESSION: Nicola left pleural effusion and atelectasis with interval increase in left pleural effusion since the prior study on 01/03/18. POS: [facility]
[2018-01-15 14:09] VITALS: BMI 27.6
--- NOTE | 2018-01-15 14:39 | CON ---
DATE OF CONSULTATION: 01/15/2018 HISTORY OF PRESENT ILLNESS: Mr. Farr is a 67-year-old male with a history of extensive stage s mall cell lung cancer. He was treated for limited stage small cell lung cancer and completed treatme nt with chemotherapy and radiation in 10/2017. He was in a complete remission in November, but in the last few weeks has progressed with increasing shortness of breath and left-sided pleural effusion. He had a thoracentesis approximately 2 weeks ago, but the fluid has built back up and he is extremely short of breath with very bad back pain. He went down to [facility] for a second opinion and the y have recommended immunotherapy treatment. On his way back from [facility] he came to the emerg ency room because of increasing shortness of breath and left-sided back pain. He also has bilateral lower extremity edema which seems to be getting worse. When he came to the emergency room, his oxyge n saturation was in the 70s. On nasal cannula oxygen it is up into the 90s and he is resting and is more comfortable. He is unable to lie flat because of back pain and shortness of breath. PAST MEDICAL HISTORY: 1. Extensive stage small cell lung cancer. 2. Hypertension. 3. Recurrent cytopenias in the past from chemotherapy. 4. Chronic obstructive pulmonary disease. 5. Obstructive sleep apnea. CURRENT MEDICATIONS: 1. ProAir. 2. Baclofen p.r.n. 3. Tylenol 3 p.r.n. 4. Aleve p.r.n. ALLERGIES: AMOXICILLIN and CHANTIX. SOCIAL HISTORY: He lives near [place]. He is here with his and children who are quite suppo rtive. He has a history of tobacco use, but did quit. He has nothing other than occasional alcohol use. REVIEW OF SYSTEMS: Otherwise, 10-point review of systems is negative. Please see the history of pre sent illness. PHYSICAL EXAMINATION: VITAL SIGNS: His pulse is in the 100s, O2 sat 75% on room air, but up to 92% on 2 liters nasal cannu la, respiratory rate on oxygen is 16. GENERAL: He is conversant, awake and oriented x3, no acute distress with nasal cannula oxygen in imelda ce. HEENT: Extraocular muscles are intact. Sclerae are anicteric. NECK: Supple, without lymphadenopathy. CARDIOVASCULAR: Tachycardic, but regular rhythm. LUNGS: Decreased breath sounds on the left side. ABDOMEN: Slightly distended, but nontender. Hypoactive bowel sounds. EXTREMITIES: Trace to 1+ pitting edema bilaterally. LABORATORY: Labs pending. X-RAY: Chest x-ray shows a left-sided pleural effusion. Restaging scans done 2 weeks prior to this admission showed progressive lymphadenopathy in the abdome n as well as left-sided pleural effusion and worsening disease in the chest. ASSESSMENT: Mr. Farr is a 67-year-old male with: 1. Progressive left-sided pleural effusion after thoracentesis. 2. Associated pain and shortness of breath secondary to pleural effusion. 3. Extensive stage small cell lung cancer, probably contributing to the pleural effusion. 4. Bilateral lower extremity edema. 5. Hypoxia. PLAN: 1. We will discuss with Pulmonary the pleural effusion. He obviously needs another thoracentesis at the very least, but he may in fact benefit from a PleurX catheter or other drain. 2. Tad Kendrick has recommended immunotherapy as had I. We have already started this process for a pproval from Medicare and we plan to hopefully start him next week once he is an outpatient. 3. I think he needs to be admitted for the hypoxia and pleural effusion. Once this is managed he ca n be discharged. 4. He has no signs of infection at this time, I do not think he needs antibiotics, but will leave th is up to Pulmonary. 5. Depending on how his edema responds to the drainage of the pleural effusion, he may or may not al so need diuresis. 6. Appreciate pulmonary and primary teams help with this.
[2018-01-15] MEDS ORDERED: HYDROcodone/Acetaminophen 7.5/325 mg Tablet PO PRN (14:49)
[2018-01-15] MEDS ORDERED: Ondansetron HCl/PF 4 MG/2 ML Vial IVP PRN (14:49)
[2018-01-15] MEDS ORDERED: Ipratropium Bromide 2.5 ml Neb NEB PRN (14:58)
[2018-01-15] MEDS ORDERED: Sodium Chloride 0.9% 1,000 ML IV SCH (15:00)
[2018-01-15] MEDS ORDERED: PROVENTIL INHALER 6.7 G (200 INHALATIONS) INH PRN (15:00)
[2018-01-15] MEDS: Sodium Chloride 0.9% 1,000 ML IV SCH (16:39)
--- NOTE | 2018-01-15 16:51 | HP ---
DATE OF ADMISSION: 01/15/2018 CHIEF COMPLAINT: Shortness of breath. HISTORY OF PRESENT ILLNESS: This is a 67-year-old white male with a known history of small cell lung cancer diagnosed 2 months ago from a body fluid analysis. The patient was referred to MD Aroldo Cobos's office for further evaluation of his cancer. The patient was ordered for an MRI scan today as an outpatient, so the patient was unable to lie down flat and was acute shortness of b reath and was in severe discomfort, so the patient was referred back to Dr. Cobos's office, and she is advised the patient to go to the ER for further evaluation. When the patient arrived at [facility], he had a chest x-ray showing an evidence of a massive pleural effusion involving most of the left part of the lung. The patient was acutely short of breath, his saturations were 72% at the ER and the patient was transferred here with the nasal cannula on 3 liters. The patient was seen in the oncology floor here. He was alert and oriented, he was sitting on the chair and was able to talk , but was short of breath and asked his to give most of the history. The patient denied having any chest pain right now, but he is acutely short of breath. He denies having any nausea, vomiting, diarrhea or constipation. No history of fever, no history of cough. PAST MEDICAL HISTORY: 1. History of small cell lung cancer diagnosed in 07/2017, has 4 rounds of chemotherapy and 32 days of radiation therapy, completed in October. The patient had a PET scan done in 11/30/2017 revealed no metastasis and was told he is in remission. 2. Otherwise, the patient has history of hypertension. 3. Hyperlipidemia. 4. History of COPD. PAST SURGICAL HISTORY: History of MediPort placement in the past. SOCIAL HISTORY: The patient is a known smoker and smoked all his life until he was diagnosed with ca ncer. No history of alcohol, no history of illicit drug use. FAMILY HISTORY: No significant family history of coronary artery disease. Mother at the age of 84. Father at the age of 77. Father had a history of colon cancer. REVIEW OF SYSTEMS: All 12 systems are reviewed with the patient thoroughly along with the family mem bers at the bedside. All systems are reviewed and found to be negative at this time except the one d escribed in the HPI. Constitutional: Weight loss or gain, sense of well-being, ability to conduct usual activities, exerc ise tolerance. Skin/Breast: Rash, itching, changes in hair growth or loss, nail changes, breast lumps, tenderness, swelling, nipple discharge. Eyes: Vision, double vision, tearing, blind spots, pain. ENT/Mouth: Headaches (location, time of onset, duration, precipitating factors), vertigo, lightheade dness, injury. Vision, double vision, tearing, blind spots, pain, nose bleeding, colds, obstruction, discharge, dental difficulties, gingival bleeding, dentures, neck stiffness, pain, tenderness, masses in thyroid or other areas. Cardiovascular: Precordial pain, substernal distress, palpitations, syncope, dyspnea on exertion, or thopnea, nocturnal paroxysmal dyspnea, edema, cyanosis, hypertension, heart murmurs, varicosities, ph lebitis, claudication. Respiratory: Pain, shortness of breath, wheezing, stridor, cough, hemoptysis, fever or night sweats. Gastrointestinal: Poor appetite, dysphagia, indigestion, abdominal pain, heartburn, eructation, naus ea, vomiting, hematemesis, jaundice, constipation, or diarrhea, abnormal stools (veronica-colored, tarry, bloody, greasy, foul smelling), flatulence, hemorrhoids, recent changes in bowel habits. Genitourinary: Urgency, frequency, dysuria, nocturia, hematuria, polyuria, oliguria, unusual (or nithin nge in) color of urine, stones, hesitancy, change in size of stream, dribbling, acute retention or in continence, libido, potency. Musculoskeletal: Pain, swelling, redness or heat of muscles or joints, limitation, of motion, muscul ar weakness, atrophy, cramps. Neurologic/Psychiatric: Convulsions, paralyses, tremor, incoordination, paresthesias, difficulties w ith memory of speech, sensory or motor disturbances, or muscular coordination (ataxia, tremor), emoti onal problems, anxiety, depression, previous psychiatric care, unusual perceptions, hallucinations. Allergy/Immunologic: Skin rash, anemia, bleeding tendency, polydipsia, polyuria, intolerance to heat or cold. HOME MEDICATIONS: 1. Codeine. 2. Naproxen. 3. Aspirin 81 mg p.o. daily at that time. 4. Albuterol inhalation. 5. Amlodipine, valsartan, and hydrochlorothiazide. 6. Hydrocodone. 7. Atorvastatin 40 mg tablet daily. 8. Tiotropium 18 mcg daily. ALLERGIES: AMOXICILLIN, DIPHENHYDRAMINE and VARENICLINE. PHYSICAL EXAMINATION: VITAL SIGNS: Blood pressures are 140/64, heart rate is 110, respiratory rate is 18, saturation 95%. GENERAL: The patient is moderately built and moderately nourished, does not appear to be in acute di stress at this time, alert and oriented x3. HEENT: Atraumatic, normocephalic. PERRLA. Extraocular movements were intact. Oral mucosa is pink and moist. CARDIOVASCULAR: S1, S2 normal. No murmurs, rubs or gallops. LUNGS: Bilateral air entry was reduced on the left side compared to the right side and dullness was noted in the left lung up to the mid lung. ABDOMEN: Soft, nontender, no guarding, no rebound tenderness. Bowel sounds normal. MUSCULOSKELETAL: No calf tenderness or pedal edema. No joint tenderness, no joint swelling. SKIN: No cyanosis, no erythema, no rash, no pallor. HOME SCHOOL COORDINATOR: Cranial nerve examination II-XII intact. No focal deficits were noted. NECK: Mild JVD was noted. No thyromegaly. No lymphadenopathy was noted. PSYCHIATRIC: No signs of suicidal ideation. No signs of anton was noted. LABORATORY DATA: WBC 7.3, hemoglobin 10.8, hematocrit of 33.4, platelets are 192. Sodium 140, potas sium 4.2, chloride is 102, bicarbonate is 27, BUN is 19. INR is 1.2. Chest x-ray was showing a large left pleural effusion and atelectasis with interval increase in the l eft pleural effusion since the prior study in 01/03/2018. ASSESSMENT: 1. Acute hypoxic respiratory failure. 2. Large left pleural effusion. 3. Chronic obstructive pulmonary disease. 4. Hypertension. 5. Hyperlipidemia. 6. Small cell lung cancer, on chemotherapy. PLAN: 1. Plan is to closely monitor this patient. He is on nasal cannula at 3 liters. He is saturating 9 5%. We will closely monitor his respiratory status. I discussed the code status with the patient, d o not want to be intubated, but was okay with BiPAP if the patient's shortness of breath get worsen. The patient has clear evidence of volume overload with pedal edema up to 2+ and crackles in the left lung. At this time, we will start him on low dose of Lasix 20 mg IV b.i.d. and we will closely raymond tor to look for any improvement in his breathing. The plan is to do a PleurX catheter during this ad mission and Dr. Chakraborty has been consulted who plans to talk to Dr. Dawson for a possible PleurX cathete r placement during this weekend. We will closely monitor the patient and if patient's condition get worsen, will be transferring him to the [facility]. 2. The patient has evidence of COPD with no evidence of exacerbation at this time, but we will start the patient on albuterol inhalation every 2 hours p.r.n. and DuoNebs every 4 hours scheduled. 3. The patient complaining of back pain, so bone scan has been ordered by Dr. Chakraborty to rule out any evidence of metastatic lesions to the spine. 4. History of hypertension, well controlled at this time. We will hold off on the blood pressure me dications. The patient is kept n.p.o. at this time, possibly for the chest tube placement. 5. History of small cell cancer. Dr. Cobos has been involved in the care. We will closely follow up with her recommendations. 6. Deep venous thrombosis prophylaxis with sequential compression devices. I spent 75 minutes with this patient.
[2018-01-15] MEDS: Morphine ER 15 MG TAB PO SCH (18:28)
--- NOTE | 2018-01-15 20:07 | CON ---
DATE OF CONSULTATION: 01/15/2018 HISTORY OF PRESENT ILLNESS: Mr. Farr is the patient, was seen by Dr. Castle in the past. He has recurrent small-cell lung cancer. He recently underwent a thoracentesis. His said he felt great for 2 days, but then he started having dyspnea on exertion again. His main complaint is pain in his left side and his back. He received morphine at the [facility] says his pain is better and his breathing is better. His is under the im pression that his breathing was better, because of the oxygen, but I suspect it is more likely relate d to the anxiolytic effect of the morphine combined with pain control. It is unusual to have pain fr om a pleural effusion, although I guess, it is possible. He points to the center of his back where radha e says he has severe pain, but he does have some left-sided discomfort as well. He was admitted for further recommendations. I have explained to the and the patient that I could certainly tap him now, but within 2 days, l eft symptoms again just like last time since he has been started on his immunotherapy. Actually, the surgeons preferred to have fluid in the pleural space to do a tunnel catheter, I believe this is wha t he needs. PAST MEDICAL HISTORY: 1. Remarkable for small-cell lung cancer diagnosed last year by bronchoscopy. He had extensive medi astinal lymphadenopathy and left-sided endobronchial lesion. 2. He has a history of underlying COPD. He is on no inhaled medications at this time. 3. History of a lipid disorder. 4. History of MediPort insertion. SOCIAL HISTORY: He is not smoking or drinking. Does not use drugs. ALLERGIES: He reports allergies to PENICILLIN, DIPHENHYDRAMINE, and VARENICLINE. FAMILY HISTORY: Negative for lung disease in early age. REVIEW OF SYSTEMS: Twelve-point review of systems is otherwise negative, he denies having any hemopt ysis. PHYSICAL EXAMINATION: VITAL SIGNS: He is afebrile, heart rate is 96, respiratory rate is 12 at rest, oximetry is 94% on ro om air. When he arrived, he only has a nasal cannula in place now at 2 liters a minute, blood pressu re is 140/64. HEENT: Pupils are equal. Sclerae anicteric. Extraocular movements are full. NECK: Supple. LUNGS: Remarkable for diffuse wheezes. Decreased breath sounds at his left base. HEART: Regular rhythm, no S3. ABDOMEN: Soft and nontender. EXTREMITIES: Without clubbing, cyanosis, or edema. IMAGING: The chest radiograph shows elevation of his left hemidiaphragm. He also has a left pleural effusion. He had a chest CT done 01/05/2018 that showed pleural based masses of the left lung base. If this is invading into his ribs I suppose, these could be causing discomfort. He has masses posterior to his thoracic aorta. He has periaortic lymph nodes. His CT suggests that some of this fluid may be loculated on the left. Spiculated densities are seen in his left upper lobe. He has gallstones, he has left kidney atrophy. No lytic bone lesions were seen. IMPRESSION: Stage for recurrent small-cell lung cancer tentatively start immunotherapy given that hi s main complaint is pain. I would argue for a bone scan at this point. He denies any femur pain, bu t it would be nice to know. If he has any lesions that may potentially become pathological fractures , weightbearing in the future. The surgeons probably will not be able to get him on the schedule for a tunnel catheter until Thursday, given that some of this is loculated probably because of pleural inv asion of the tumor. It is best if the surgeons do the placement of the catheter, I really do not thi nk at this point in time he needs thoracentesis since he is completely asymptomatic at rest. He is w heezing, so we will start him on nebulized treatments and daily steroids. Dr. Dawson has been notified the patient's admission. So he will probably see him sometime later jeanne roman. This is a 50-minute consult, greater than 50% of the time was spent coordinating care on the unit.
[2018-01-15] MEDS: HYDROcodone/Acetaminophen 10/325 mg Tablet PO PRN (21:46)
[2018-01-15] MEDS: Famotidine/PF 20 mg/2ml Vial SLOW IVP SCH (21:48)
[2018-01-15] MEDS: Docusate 100 MG CAP PO SCH (21:56)
[2018-01-15] MEDS: Pravastatin Sodium 40 MG TAB PO SCH (21:56)
[2018-01-15] MEDS: Hydrochlorothiazide 25 MG TAB PO SCH (21:56)
[2018-01-15] MEDS: Amlodipine 5 MG TAB PO SCH (21:56)
[2018-01-16] MEDS: HYDROcodone/Acetaminophen 10/325 mg Tablet PO PRN ×2 (05:58→12:03)
[2018-01-16] MEDS ORDERED: Furosemide 20 MG/2 ML VIAL SLOW IVP SCH (06:00)
[2018-01-16 06:29] LABS: #Eosinphils 0.2 thou/uL (0.0-0.7); #Lymphocytes 0.5 thou/uL (1.20-3.40); #Monocytes 0.8 thou/uL (0.11-0.59); #Neutrophils 5.8 thou/uL (1.40-6.50); %Basophils 0.2 % (0.0-1.0); %Eosinophils 2.4 % (0.0-10.0); %Lymphocytes 6.9 % (21.0-51.0); %Monocytes 11.1 % (0.0-10.0); %Neutrophils 79.4 % (42.0-75.0); Hemoglobin 10.7 g/dL (14.0-18.0); Mean Corpuscular HGB CONC 32.2 g/dL (32.0-36.0); Mean Corpuscular Hemoglobin 32.7 pg (27.0-31.0); Mean Platelet Volume 6.8 fL (7.4-10.4); Platelet Count 213 thou/uL (130-400); RBC Distribution Width 13.4 % (11.5-14.5); Red Blood Cell (RBC) Count 3.28 mill/uL (4.70-6.10); White Blood Cell (WBC) Count 7.2 thou/uL (4.8-10.8)
[2018-01-16 06:41] LABS: Anion Gap 12 mmol/L (10-20); BUN (Urea Nitrogen) 19 mg/dL (8.4-25.7); Calc. Creatinine Clearance 90 mL/min (70-130); Calcium 9.6 mg/dL (7.8-10.44); Carbon Dioxide 29 mmol/L (23-31); Chloride 102 mmol/L (98-107); Estimated GFR-MDRD 74; Glucose 104 mg/dL (80-115); Potassium 4.1 mmol/L (3.5-5.1); Sodium 139 mmol/L (136-145)
[2018-01-16] MEDS: Morphine ER 15 MG TAB PO SCH ×2 (07:25→18:24)
[2018-01-16] MEDS ORDERED: Spiriva 18 MCG CAP (Box of 5 Caps) INH SCH (09:00)
[2018-01-16] MEDS: Docusate 100 MG CAP PO SCH ×2 (09:46→21:51)
[2018-01-16] MEDS: Famotidine/PF 20 mg/2ml Vial SLOW IVP SCH ×2 (09:46→21:50)
[2018-01-16] MEDS: Valsartan 80 MG TAB PO SCH (13:21)
[2018-01-16] MEDS ORDERED: guaiFENesin 100 MG/5 ML UDCUP PO PRN (14:05)
--- NOTE | 2018-01-16 14:52 | PRG ---
DATE OF SERVICE: 01/16/2018 He had some breakthrough pain earlier and received hydrocodone. He became very confused for about 15 minutes after that. He has done well with IV morphine, so will discontinue the hydrocodone, just tr eat him with MS Marek and breakthrough IV morphine to have more information. He is tentatively scheduled for a bone scan today. He is tentatively on the schedule for a tunneled catheter on Thursday. OBJECTIVE: LUNGS: His lungs sound better today. He is not wheezing at all at this time. HEART: Regular rhythm. ABDOMEN: Soft. IMPRESSION: 1. ? chronic obstructive pulmonary disease exacerbation contributing dyspnea. 2. Back and chest pain. He has bone involvement somewhere might lead to focused radiation, so bone scan has been done today. Recurrent small cell lung cancer, tentatively scheduled to start immunotherapy. PLAN: Continue as above.
--- NOTE | 2018-01-16 15:45 | NM ---
WHOLE BODY BONE SCAN: Date: 01/16/18 RADIOPHARMACEUTICAL: 30 mCi technetium-99m labeled MDP IV. FINDINGS: Comparison is made with the CT of the chest performed 01/05/18. There is a subtle area of increased radiotracer activity overlying the medial aspect of the left 11th rib. No corresponding abnormality is evident on the CT in this region. Degenerative type uptake is s een involving the shoulders, knees, and sternoclavicular joints. The patient was unable to complete t he examination, and thus the ankles and feet are not evaluated. Very subtle focus of radiotracer activity involving the posterior calvarium is nonspecific. Degenerat aminta-type uptake is suspected involving the cervical spine. IMPRESSION: No definitive evidence to suggest osseous metastatic disease. Nonspecific subtle foci of increased ra diotracer uptake involving the left 11th rib and occipital skull. No correlative lesion is seen on CT involving the left 11th rib. POS: [facility]
[2018-01-16] MEDS: Diabetic Tussin 200 MG/10 ML UDCUP PO PRN ×2 (16:03→21:50)
--- NOTE | 2018-01-16 16:21 | PDOC.PN ---
- Subjective Encounter Start Date: 01/16/18 Encounter Start Time: 07:20 Paient is seen today, Drowsy and lethargic, On nasal Canula, no concenr snotd, Discussd with Nurse, pt is getting Bone scan later today. - Objective Resuscitation Status: Resuscitation Status FULL:Full Resuscitation MAR Reviewed: Yes Vital Signs & Weight: Vital Signs (12 hours) Temp Pulse Resp BP Pulse Ox 01/16/18 12:50 98.0 F 115 H 18 110/52 L 95 01/16/18 12:13 20 96 01/16/18 08:05 93 L 01/16/18 08:02 102 H 16 92 L 01/16/18 07:30 97.8 F 112 H 18 125/63 94 L Result Diagrams: 01/16/18 06:16 01/16/18 06:16 Radiology Reviewed by me: Yes Phys Exam - Physical Examination HEENT: PERRLA, moist MMs Neck: no nodes, no JVD Respiratory: wheezing present Cardiovascular: RRR, no significant murmur Gastrointestinal: soft, non-tender Musculoskeletal: edema present Neurological: non-focal, normal sensation Lymphatic: no nodes Psychiatric: normal affect, A&O x 3 Skin: no rash, normal turgor Dx/Plan (1) Acute and chronic respiratory failure with hypoxia Code(s): J96.21 - ACUTE AND CHRONIC RESPIRATORY FAILURE WITH HYPOXIA Status: Acute Comment: PT remains hypoxic on NC, stbale, Will continue to Monitor planned for Tunneled Catheter to drain the Fluids. (2) COPD exacerbation Code(s): J44.1 - CHRONIC OBSTRUCTIVE PULMONARY DISEASE W (ACUTE) EXACERBATION Status: Acute Comment: Contionue with Nebs, Sbale. Dr. Chakraborty following. (3) Recurrent left pleural effusion Code(s): J90 - PLEURAL EFFUSION, NOT ELSEWHERE CLASSIFIED Status: Acute Comment: Plan as Above. (4) Small cell lung cancer Code(s): C34.90 - MALIGNANT NEOPLASM OF UNSP PART OF UNSP BRONCHUS OR LUNG Status: Acute Qualifiers: Laterality: left Qualified Code(s): C34.92 - Malignant neoplasm of unspecified part of left bronchus or lung Comment: with recurrence, s/p left thoracentesis with removal of 1.7lts blood tinge effusion (5) HTN (hypertension) Code(s): I10 - ESSENTIAL (PRIMARY) HYPERTENSION Status: Chronic Qualifiers: Hypertension type: essential hypertension Qualified Code(s): I10 - Essential (primary) hypertension Comment: Zoë. - Plan cont current plan of care, PT/OT, renal social worker, respiratory therapy, incentive spirometry, DVT proph w/SCDs * . - Discharge Day Encounter end time: 08:00 Review of Systems - Review of Systems Eyes: negative: Pain, Vision Change, Conjunctivae Inflammation, Eyelid Inflammation, Redness, Other Respiratory: Cough, Shortness of Breath, Wheezing Cardiovascular: edema. negative: chest pain, palpitations, orthopnea, paroxysmal nocturnal dyspnea, light headedness, other Gastrointestinal: negative: Nausea, Vomiting, Abdominal Pain, Diarrhea, Constipation, Melena, Hematochezia, Other Musculoskeletal: negative: Neck Pain, Shoulder Pain, Arm Pain, Back Pain, Hand Pain, Leg Pain, Foot Pain, Other Skin: negative: Rash, Lesions, Adolph, Bruising, Other Neurological: negative: Weakness, Numbness, Incoordination, Change in Speech, Confusion, Seizures, Other - Medications/Allergies Allergies/Adverse Reactions: Allergies Allergy/AdvReac Type Severity Reaction Status Date / Time amoxicillin Allergy Verified 07/23/17 13:15 diphenhydramine Allergy Verified 01/03/18 16:09 [From Benadryl] [email or web address] [From Chantix] Allergy Verified 07/23/17 13:15 Medications: Current Medications Albuterol Sulfate (Ventolin) 2.5 mg NEB Q2H PRN PRN Reason: Wheezing Albuterol/Ipratropium (Duoneb) 3 ml NEB [id number] PRN PRN Reason: SOB &/or Wheezing Last Admin: 01/16/18 12:13 Dose: 3 ml Amlodipine Besylate (Norvasc) 5 mg PO HS KERRY Last Admin: 01/15/18 21:56 Dose: Not Given Docusate Sodium (Colace) 100 mg PO BID KERRY Last Admin: 01/16/18 09:46 Dose: 100 mg Famotidine (Pepcid) 20 mg SLOW IVP Q12HR KERRY Last Admin: 01/16/18 09:46 Dose: 20 mg Guaifenesin (Robitussin Sf) 200 mg PO Q6H PRN PRN Reason: COUGH Last Admin: 01/16/18 16:03 Dose: 200 mg Hydrochlorothiazide (Hydrochlorothiazide) 12.5 mg PO HS [facility] Last Admin: 01/15/18 21:56 Dose: Not Given Sodium Chloride (Normal Saline 0.9%) 1,000 mls @ 50 mls/hr IV .Q20H [facility] Last Admin: 01/15/18 16:39 Dose: 1,000 mls Methylprednisolone Sodium Succinate (Solu-Medrol) 40 mg IVP 1600 [facility] Morphine Sulfate (Ms Contin) 15 mg PO [id number] [facility] Last Admin: 01/16/18 07:25 Dose: 15 mg Morphine Sulfate (Morphine Sulfate) 4 mg SLOW IVP Q2H PRN PRN Reason: Breakthrough Pain Last Admin: 01/16/18 14:01 Dose: 4 mg Naproxen (Naprosyn) 250 mg PO Q6H PRN PRN Reason: BREAKTHROUGH PAIN Ondansetron HCl (Zofran) 4 mg IVP Q6H PRN PRN Reason: Nausea/Vomiting Pravastatin Sodium (Pravachol) 40 mg PO QPM [facility] Last Admin: 01/15/18 21:56 Dose: Not Given Sodium Chloride (Flush - Normal Saline) 10 ml IVF Q12HR [facility] Sodium Chloride (Flush - Normal Saline) 10 ml IVF PRN PRN PRN Reason: Saline Flush Valsartan (Diovan) 160 mg PO DAILY [facility] Last Admin: 01/16/18 13:21 Dose: Not Given
[2018-01-16] MEDS: Hydrochlorothiazide 25 MG TAB PO SCH (21:51)
[2018-01-16] MEDS: Amlodipine 5 MG TAB PO SCH (21:51)
[2018-01-16] MEDS: Pravastatin Sodium 40 MG TAB PO SCH (21:52)
[2018-01-16] MEDS: Naproxen 500 MG TAB PO PRN (21:59)
[2018-01-17 05:21] LABS: #Lymphocytes 0.3 thou/uL (1.20-3.40); #Monocytes 0.4 thou/uL (0.11-0.59); #Neutrophils 6.5 thou/uL (1.40-6.50); %Eosinophils 0.1 % (0.0-10.0); %Lymphocytes 4.3 % (21.0-51.0); %Monocytes 5.6 % (0.0-10.0); Hemoglobin 10.4 g/dL (14.0-18.0); Mean Corpuscular HGB CONC 31.9 g/dL (32.0-36.0); Mean Corpuscular Hemoglobin 32.4 pg (27.0-31.0); Mean Platelet Volume 6.6 fL (7.4-10.4); Platelet Count 212 thou/uL (130-400); RBC Distribution Width 13.4 % (11.5-14.5); Red Blood Cell (RBC) Count 3.22 mill/uL (4.70-6.10); White Blood Cell (WBC) Count 7.3 thou/uL (4.8-10.8)
[2018-01-17 05:36] LABS: Anion Gap 12 mmol/L (10-20); BUN (Urea Nitrogen) 22 mg/dL (8.4-25.7); Calc. Creatinine Clearance 92 mL/min (70-130); Calcium 9.8 mg/dL (7.8-10.44); Carbon Dioxide 31 mmol/L (23-31); Chloride 99 mmol/L (98-107); Estimated GFR-MDRD 75; Glucose 137 mg/dL (80-115); Potassium 4.8 mmol/L (3.5-5.1); Sodium 137 mmol/L (136-145)
[2018-01-17] MEDS: Morphine ER 15 MG TAB PO SCH ×2 (07:21→18:27)
[2018-01-17] MEDS: Famotidine/PF 20 mg/2ml Vial SLOW IVP SCH ×2 (08:47→20:21)
[2018-01-17] MEDS: Valsartan 80 MG TAB PO SCH (08:50)
[2018-01-17] MEDS: Docusate 100 MG CAP PO SCH ×2 (08:50→20:18)
[2018-01-17] MEDS: Diabetic Tussin 200 MG/10 ML UDCUP PO PRN ×2 (09:17→16:07)
[2018-01-17] MEDS: Naproxen 500 MG TAB PO PRN ×2 (11:56→20:17)
[2018-01-17] MEDS: Albuterol Sulfate 2.5 mg/3 ml Neb NEB PRN (12:12)
[2018-01-17] MEDS: Sodium Chloride 0.9% 1,000 ML IV SCH (16:08)
--- NOTE | 2018-01-17 16:55 | PRG ---
DATE OF SERVICE: 01/17/2018 SUBJECTIVE: Mr. Farr had his bone scan. I have reviewed his scan There is a subtle abnormali ty in is 11th rib posteriorly. This is very close to where he has his discomfort. His posterior calvarium was remarkable for a possible abnormality as well, but he has no complaints t here. OBJECTIVE: LUNGS: Clear. He still has decreased breath sounds on the left. HEART: Regular rhythm. ABDOMEN: Soft. He is tentatively on the schedule tomorrow for placement of the tunnel catheter. IMPRESSION: 1. Recurrent small cell lung cancer. 2. Left posterior thoracic pain with the abnormality on his bone scan that is very subtle. I suspec t this is metastatic lesion, even though it is a very subtle abnormality. If his pain gets progressively worse, he would be a candidate for an area of focused radiation in my opinion. He continues with his MS Marek for now.
--- NOTE | 2018-01-17 17:52 | PDOC.PN ---
- Subjective Encounter Start Date: 01/17/18 Encounter Start Time: 16:00 Patient is seen today, alert and oriented. No other Concern snotd. - Objective Resuscitation Status: Resuscitation Status DNR:Do Not Resuscitate Vital Signs & Weight: Vital Signs (12 hours) Temp Pulse Resp BP Pulse Ox 01/17/18 16:04 102 H 18 92 L 01/17/18 12:12 115 H 20 94 L 01/17/18 08:00 97.5 F L 107 H 20 94 L 01/17/18 07:44 92 L 01/17/18 07:40 97.5 F L 107 H 20 120/63 94 L I&O: 01/16/18 01/17/18 01/18/18 05:59 06:59 06:59 Intake Total Balance Result Diagrams: 01/17/18 05:15 01/17/18 05:15 Radiology Reviewed by me: Yes Phys Exam - Physical Examination HEENT: PERRLA Neck: no JVD Respiratory: no rales, wheezing present Cardiovascular: RRR, no significant murmur Gastrointestinal: soft, non-tender Musculoskeletal: pulses present, edema present Neurological: non-focal, normal sensation Lymphatic: no nodes Psychiatric: normal affect, A&O x 3 Dx/Plan (1) Acute and chronic respiratory failure with hypoxia Code(s): J96.21 - ACUTE AND CHRONIC RESPIRATORY FAILURE WITH HYPOXIA Status: Acute Comment: PT remains hypoxic on NC, stbale, Will continue to Monitor planned for Tunneled Catheter to drain the Fluids. (2) COPD exacerbation Code(s): J44.1 - CHRONIC OBSTRUCTIVE PULMONARY DISEASE W (ACUTE) EXACERBATION Status: Acute Comment: Contionue with Nebs, Sbale. Dr. Chakraborty following. (3) Recurrent left pleural effusion Code(s): J90 - PLEURAL EFFUSION, NOT ELSEWHERE CLASSIFIED Status: Acute Comment: Plan as Above. (4) Small cell lung cancer Code(s): C34.90 - MALIGNANT NEOPLASM OF UNSP PART OF UNSP BRONCHUS OR LUNG Status: Acute Qualifiers: Laterality: left Qualified Code(s): C34.92 - Malignant neoplasm of unspecified part of left bronchus or lung Comment: with recurrence, s/p left thoracentesis with removal of 1.7lts blood tinge effusion (5) HTN (hypertension) Code(s): I10 - ESSENTIAL (PRIMARY) HYPERTENSION Status: Chronic Qualifiers: Hypertension type: essential hypertension Qualified Code(s): I10 - Essential (primary) hypertension Comment: Zoë. - Plan cont current plan of care, plan discussed w/ family, nugent catheter, PT/OT, respiratory therapy, incentive spirometry, DVT proph w/lovenox * . - Discharge Day Encounter end time: 16:35 Review of Systems - Review of Systems Constitutional: negative: fever, chills, sweats, weakness, malaise, other Eyes: negative: Pain, Vision Change, Conjunctivae Inflammation, Eyelid Inflammation, Redness, Other ENT: negative: Ear Pain, Ear Discharge, Nose Pain, Nose Discharge, Nose Congestion, Mouth Pain, Mouth Swelling, Throat Pain, Throat Swelling, Other Respiratory: Shortness of Breath, SOB with Excertion, Wheezing Cardiovascular: negative: chest pain, palpitations, orthopnea, paroxysmal nocturnal dyspnea, edema, light headedness, other Gastrointestinal: negative: Nausea, Vomiting, Abdominal Pain, Diarrhea, Constipation, Melena, Hematochezia, Other Genitourinary: negative: Dysuria, Frequency, Incontinence, Hematuria, Retention , Other Musculoskeletal: negative: Neck Pain, Shoulder Pain, Arm Pain, Back Pain, Hand Pain, Leg Pain, Foot Pain, Other Skin: negative: Rash, Lesions, Adolph, Bruising, Other - Medications/Allergies Allergies/Adverse Reactions: Allergies Allergy/AdvReac Type Severity Reaction Status Date / Time amoxicillin Allergy Verified 07/23/17 13:15 diphenhydramine Allergy Verified 01/03/18 16:09 [From Benadryl] varenicline [From Chantix] Allergy Verified 07/23/17 13:15 Medications: Current Medications Albuterol Sulfate (Ventolin) 2.5 mg NEB Q2H PRN PRN Reason: Wheezing Last Admin: 01/17/18 12:12 Dose: 2.5 mg Albuterol/Ipratropium (Duoneb) 3 ml NEB [id number] PRN PRN Reason: SOB &/or Wheezing Last Admin: 01/17/18 16:04 Dose: 3 ml Amlodipine Besylate (Norvasc) 5 mg PO HS [facility] Last Admin: 01/16/18 21:51 Dose: Not Given Docusate Sodium (Colace) 100 mg PO BID [facility] Last Admin: 01/17/18 08:50 Dose: 100 mg Famotidine (Pepcid) 20 mg SLOW IVP Q12HR [facility] Last Admin: 01/17/18 08:47 Dose: 20 mg Guaifenesin (Robitussin Sf) 200 mg PO Q6H PRN PRN Reason: COUGH Last Admin: 01/17/18 16:07 Dose: 200 mg Hydrochlorothiazide (Hydrochlorothiazide) 12.5 mg PO HS [facility] Last Admin: 01/16/18 21:51 Dose: Not Given Sodium Chloride (Normal Saline 0.9%) 1,000 mls @ 20 mls/hr IV .Q24H [facility] Last Admin: 01/17/18 16:08 Dose: 1,000 mls Methylprednisolone Sodium Succinate (Solu-Medrol) 40 mg IVP 1600 [facility] Last Admin: 01/17/18 17:10 Dose: 40 mg Morphine Sulfate (Ms Contin) 15 mg PO [id number] [facility] Last Admin: 01/17/18 07:21 Dose: 15 mg Morphine Sulfate (Morphine Sulfate) 4 mg SLOW IVP Q2H PRN PRN Reason: Breakthrough Pain Last Admin: 01/16/18 14:01 Dose: 4 mg Naproxen (Naprosyn) 250 mg PO Q6H PRN PRN Reason: BREAKTHROUGH PAIN Last Admin: 01/17/18 11:56 Dose: 250 mg Ondansetron HCl (Zofran) 4 mg IVP Q6H PRN PRN Reason: Nausea/Vomiting Pravastatin Sodium (Pravachol) 40 mg PO QPM [facility] Last Admin: 01/16/18 21:52 Dose: Not Given Sodium Chloride (Flush - Normal Saline) 10 ml IVF Q12HR [facility] Last Admin: 01/17/18 11:45 Dose: 10 ml Sodium Chloride (Flush - Normal Saline) 10 ml IVF PRN PRN PRN Reason: Saline Flush Valsartan (Diovan) 160 mg PO DAILY [facility] Last Admin: 01/17/18 08:50 Dose: Not Given
[2018-01-17] MEDS: Pravastatin Sodium 40 MG TAB PO SCH (20:18)
[2018-01-17] MEDS: Hydrochlorothiazide 25 MG TAB PO SCH ×2 (20:18→23:59)
[2018-01-17] MEDS: Amlodipine 5 MG TAB PO SCH (20:19)
[2018-01-17] MEDS ORDERED: Acetaminophen 325 MG TAB PO PRN (20:45)
[2018-01-18] MEDS: Diabetic Tussin 200 MG/10 ML UDCUP PO PRN ×2 (02:11→15:47)
[2018-01-18] MEDS: Morphine ER 15 MG TAB PO SCH ×2 (05:17→17:01)
[2018-01-18 06:27] LABS: #Lymphocytes 0.4 thou/uL (1.20-3.40); #Monocytes 0.8 thou/uL (0.11-0.59); #Neutrophils 6.9 thou/uL (1.40-6.50); %Eosinophils 0.1 % (0.0-10.0); %Monocytes 9.2 % (0.0-10.0); %Neutrophils 85.7 % (42.0-75.0); Hemoglobin 10.4 g/dL (14.0-18.0); Mean Corpuscular HGB CONC 31.8 g/dL (32.0-36.0); Mean Platelet Volume 6.3 fL (7.4-10.4); Platelet Count 200 thou/uL (130-400); RBC Distribution Width 13.5 % (11.5-14.5); Red Blood Cell (RBC) Count 3.25 mill/uL (4.70-6.10); White Blood Cell (WBC) Count 8.1 thou/uL (4.8-10.8)
[2018-01-18 06:36] LABS: Anion Gap 11 mmol/L (10-20); BUN (Urea Nitrogen) 23 mg/dL (8.4-25.7); Calc. Creatinine Clearance 88 mL/min (70-130); Calcium 9.7 mg/dL (7.8-10.44); Carbon Dioxide 31 mmol/L (23-31); Chloride 100 mmol/L (98-107); Estimated GFR-MDRD 71; Glucose 121 mg/dL (80-115); Potassium 4.6 mmol/L (3.5-5.1); Sodium 137 mmol/L (136-145)
[2018-01-18] MEDS ORDERED: CEFAZOLIN/Water 2 GM/20 ML SYRINGE ONE (07:00)
[2018-01-18] MEDS ORDERED: Fentanyl 250 MCG/5 ML VIAL ONE ×2 (07:22→08:05)
[2018-01-18] MEDS ORDERED: Midazolam HCl 2 mg/2 ml Vial ONE (07:22)
--- NOTE | 2018-01-18 07:53 | PDOC.PN ---
- Subjective Encounter Start Date: 01/18/18 Encounter Start Time: 13:15 Subjective: Patient sitting comfortably in his room. Desats with any movement. -: Failed attempt to place catheter this AM due to adherent lung. - Objective Resuscitation Status: Resuscitation Status DNR:Do Not Resuscitate MAR Reviewed: Yes Vital Signs & Weight: Vital Signs (12 hours) Temp Pulse Resp BP Pulse Ox 01/18/18 05:30 98.8 F 112 H 24 H 134/64 95 01/18/18 05:14 110 H 18 92 L 01/18/18 01:02 112 H 20 86 L 01/17/18 20:54 106 H 18 93 L 01/17/18 20:19 102 H 01/17/18 20:00 97.9 F 108 H 24 H 121/58 L 93 L I&O: 01/17/18 01/18/18 01/19/18 06:59 06:59 06:59 Intake Total Balance Result Diagrams: 01/18/18 06:20 01/18/18 06:20 Phys Exam - Physical Examination Constitutional: NAD HEENT: moist MMs Neck: no JVD Respiratory: no wheezing, no rhonchi decreased BS left base Cardiovascular: RRR Gastrointestinal: soft, positive bowel sounds Neurological: non-focal, moves all 4 limbs Psychiatric: normal affect, A&O x 3 Dx/Plan (1) Acute and chronic respiratory failure with hypoxia Code(s): J96.21 - ACUTE AND CHRONIC RESPIRATORY FAILURE WITH HYPOXIA Status: Acute Comment: PT remains hypoxic with activity, Dr. Chakraborty has ordered home O2 (2) COPD exacerbation Code(s): J44.1 - CHRONIC OBSTRUCTIVE PULMONARY DISEASE W (ACUTE) EXACERBATION Status: Acute Comment: Contionue with Nebs, Stable. Dr. Chakraborty following. (3) Recurrent left pleural effusion Code(s): J90 - PLEURAL EFFUSION, NOT ELSEWHERE CLASSIFIED Status: Acute (4) Small cell lung cancer Code(s): C34.90 - MALIGNANT NEOPLASM OF UNSP PART OF UNSP BRONCHUS OR LUNG Status: Acute Qualifiers: Laterality: left Qualified Code(s): C34.92 - Malignant neoplasm of unspecified part of left bronchus or lung Comment: with recurrence, s/p left thoracentesis with removal of 1.7lts blood tinge effusion, lesion to rib with increasing pain, may need focal radiation therapy (5) HTN (hypertension) Code(s): I10 - ESSENTIAL (PRIMARY) HYPERTENSION Status: Chronic Qualifiers: Hypertension type: essential hypertension Qualified Code(s): I10 - Essential (primary) hypertension Comment: Stable. - Plan cont current plan of care arrange home O2, home nebulizer, then d/c tomorrow. * . - Discharge Day Encounter end time: 13:30
[2018-01-18] MEDS: Sodium Chloride 0.9% 1,000 ML IV SCH (08:18)
[2018-01-18] MEDS ORDERED: Lidocaine 1% (PF) 30 ML VIAL ONE (09:22)
[2018-01-18] MEDS ORDERED: Promethazine HCl 25 MG/ML VIAL SLOW IVP PRN (10:50)
[2018-01-18] MEDS ORDERED: Promethazine HCl 25 MG/ML VIAL IM PRN (10:50)
[2018-01-18] MEDS ORDERED: Ondansetron HCl/PF 4 MG/2 ML Vial IVP PRN (10:50)
--- NOTE | 2018-01-18 10:51 | OP ---
DATE OF PROCEDURE: 01/18/2018 PREOPERATIVE DIAGNOSIS: Malignant pleural effusion, left. POSTOPERATIVE DIAGNOSIS: Malignant pleural effusion, left. PROCEDURE: PleurX catheter placement. Attempt at chest tube placement. SURGEON: Dr. Benja Dawson ANESTHESIA: LMA, general. PROCEDURE IN DETAIL: After the patient had been placed in a left 45-degree position, he was prepped and draped. Lidocaine and needle were used to infiltrate the skin. The patient was quite large and palpation of the ribs was really difficult. An area that was felt to be just inferior to the scapula and anterior to this was infiltrated and a needle inserted over the rib after the rib and been conta cted with the needle. Small amount of pleural fluid was aspirated and after this had been done, the Angiocath was used to replace the needle and pleural fluid was obtained. Wire was inserted through t he Angiocath and the wire did not pass much past about 2-3 inches and would not pass further. Follo wing this, the tract was anesthetized for the PleurX catheter and a consideration was given to shorte grace the catheter; however, it was elected to place the entire catheter. The peel-away sheath was th en advanced over the wire and fluid did return. The PleurX catheter was advanced through this and in to the chest. At that time, the catheter was buckling out of the chest for about 2 cm and attempts t o slide it in were not successful. The incision was enlarged to allow some dissection and after this had been done, the entry site was identified and the catheter advanced in, but continued to buckle o ut without any further fluid output other than the 250-300 mL that was initially obtained. A 20 Fren ch chest tube was then brought on the field and the PleurX catheter was removed and the chest tube ad vanced, but would only go in about 2 inches and no for fluid was being evacuated. At that time, the wound was closed in layers. Chest x-ray was obtained which appeared to show loculated pleural fluid collection and at that time, no further intervention was entertained.
--- NOTE | 2018-01-18 11:02 | RAD ---
AP VIEW CHEST: HISTORY: Failed PleurX catheter. FINDINGS: AP view chest is obtained on 01/18/18. Comparison is made to previous exam from 01/15/18. AP view chest demonstrates a right subclavian MediPort catheter. Cardiomegaly is seen. There is a l eft-sided pleural effusion seen. Much of the left hemithorax is excluded off of the radiograph. The position of the PleurX catheter is not visible. IMPRESSION: Left-sided pleural effusion. POS: [facility]
--- NOTE | 2018-01-18 11:24 | PRG ---
DATE OF SERVICE: 01/18/2018 Mr. Farr has had a conversation with Dr. Dawson too. Conversation with Dr. Ames today and I met with the family twice. He underwent an attempted placement of a chest tube and a tunnel catheter, neither of which were succ essful. He apparently has lung adherent to his chest wall which most likely is a result of tumor. At this point, we just need to get him and started on his immunotherapy when that is feasible. He is afebrile, heart rate 104, respiratory rate 20, oximetry is 94% on room air prior to surgery. H e desaturates into the low 80s with ambulation. He is examined postoperatively. His lungs are clear. He actually gets enormous benefit from the neb ulizer treatments talking to his family, so we need to get him a nebulizer. We also need to get him wheelchair since he has a limited ability to ambulate and we need to get him oxygen since he desatura alma significantly with exertion. His post-procedure chest radiograph did not show pneumothorax on the left. Chest radiograph essentially unchanged, though the film was poor technical quality. Lungs are free o f wheezes. Heart, regular rhythm. Abdomen was soft. He was examined in the recovery room. He is s table to move and go back to his room. He is awake. I have explained everything to him and explaine d everything to the family as well. The next best option is therapy. We discussed CT scanning. He had negative MRI of his brain in the fall. He has no symptoms to suggest brain mets at this time or exam findings, so we will hold off on imaging of his brain at this point in time to see if we can get him and started on this therapy within the next week. He is surprisingly willing to stay another [facility]. Hopefully, we can get all of his home care needs arranged overnight.
[2018-01-18] MEDS: Docusate 100 MG CAP PO SCH ×2 (11:47→23:38)
[2018-01-18] MEDS: Famotidine/PF 20 mg/2ml Vial SLOW IVP SCH (11:47)
[2018-01-18] MEDS: Valsartan 80 MG TAB PO SCH (12:28)
[2018-01-18] MEDS ORDERED: PROPOFOL 200 MG/20 ML VIAL ONE (16:48)
[2018-01-18] MEDS: Naproxen 500 MG TAB PO PRN (21:37)
[2018-01-18] MEDS ORDERED: Morphine 4 MG/ML VIAL SLOW IVP PRN (23:30)
[2018-01-18] MEDS: Hydrochlorothiazide 25 MG TAB PO SCH (23:38)
[2018-01-18] MEDS: Famotidine 20 MG TAB PO SCH (23:38)
[2018-01-18] MEDS: Amlodipine 5 MG TAB PO SCH (23:38)
[2018-01-18] MEDS: Pravastatin Sodium 40 MG TAB PO SCH (23:39)
[2018-01-19] MEDS: Albuterol Sulfate 2.5 mg/3 ml Neb NEB PRN (02:26)
[2018-01-19] MEDS: Sodium Chloride 0.9% 1,000 ML IV SCH (04:19)
[2018-01-19] MEDS: Morphine ER 15 MG TAB PO SCH (07:43)
[2018-01-19] MEDS: Docusate 100 MG CAP PO SCH (07:45)
[2018-01-19] MEDS: Famotidine 20 MG TAB PO SCH (07:45)
[2018-01-19] MEDS: Valsartan 80 MG TAB PO SCH (07:46)
[2018-01-19] MEDS ORDERED: Fluticasone Propionate Nasal Spray 16 gm Bottle NASAL SCH (09:00)
[2018-01-19 11:20] VITALS: BP 123/60; TEMP 98.2
[2018-01-19] MEDS: Diabetic Tussin 200 MG/10 ML UDCUP PO PRN (11:20)
[2018-01-19] MEDS ORDERED: Insulin Regular 300 UNITS/3 ML VIAL ONE (13:11)
--- NOTE | 2018-01-19 21:44 | DIS ---
DATE OF ADMISSION: 01/15/2018 DATE OF DISCHARGE: 01/19/2018 PRIMARY CARE PHYSICIAN: Unknown. PRIMARY TECHNOLOGY SUPPORT ANALYST: Dr. Thony Castle. PRIMARY ONCOLOGIST: Dr. Ivy Cobos. DISCHARGE DIAGNOSES: 1. Small cell lung cancer. 2. Malignant pleural effusion. 3. Acute hypoxemic respiratory failure. 4. Metastatic disease with chronic pain. 5. Chronic obstructive pulmonary disease. 6. Acute exacerbation of chronic obstructive pulmonary disease. 7. Essential hypertension. CONSULTATIONS: 1. Pulmonary Critical Care, Dr. Kev Chakraborty. 2. Oncology, Dr. Ivy Cobos. 3. Cardiothoracic Surgery, Dr. Benja Dawson. PROCEDURES: On 01/18/2018, Dr. Benja Dawson, PleurX catheter placement with failed placement due to a dhered long. HISTORY OF PRESENT ILLNESS AND HOSPITAL COURSE: Mr. Farr is a 67-year-old white male with abov e history, diagnosed with small cell lung cancer in July 2017, status post 4 rounds of chemother apy and 32 days of radiation therapy completed in October. PET scan showed no metastasis until it w as in remission. On day of admission, underwent outpatient MRI which he was unable to lay flat for. This was due to shortness of breath. He was referred back to Dr. Cobos's office and was told to go to the ER for evaluation. On arrival to [facility] ER, chest x-ray showed a massive pleural effusion involving most of the left lung. His oxygen saturation was 72%. The patient was transferred to our facility. He w as maintaining sats on 3 liters nasal cannula. On arrival, seen by Oncology and we were admitting. HOSPITAL COURSE: The patient was seen and examined by Dr. Herb Sanders. Oncology was consulted, Pulm onary was consulted, the patient was placed on Lasix 20 mg b.i.d. and the patient was placed on albut juan alberto inhalation as needed and every 2 hours and DuoNebs every 4 hours schedule. Bone scan was ordere d by Dr. Chakraborty due to back pain and patient's blood pressure medicine was held that he normally does not take them on at home. The patient did well overnight. Pain was difficult to control. On 01/16/2018, he underwent a bone s can in Nuclear Medicine, which revealed no evidence to suggest osseous metastatic disease, but did rodríguez ve subtle foci of increased radiotracer in the left 11th rib and occipital skull without correlated l esion seen on CT scan. He was started on MS Contin and [place] 10/325 for breakthrough. By 01/17/2018, patient was improving. He is still requiring oxygen. There is some concern due to fl uid being accumulated. Dr. Dawson was consulted and saw the patient on 01/18/2018. He was taken to [facility] operating room with plans to place a PleurX catheter; however, was unable to place due to adherent lung to the chest wall. He subsequently aborted the mission. The patient was given steroids, nebulizer treatments. On 01/19/2018, the patient remained stable. He is afebrile. Her breathing was at his baseline and h e was stable for discharge with outpatient followup. DISCHARGE MEDICATIONS: 1. Albuterol sulfate 2.5 mg every 2 hours as needed, nebulized. 2. DuoNebs every 6 hours. Prescription sent. 3. MS Contin 30 mg p.o. b.i.d., prescription for 60 tablets sent. 4. Prednisone 40 mg p.o. q.a.m. to decrease by 10 mg every third day until tapered off. 5. Flonase 2 puffs nasal daily. 6. Exforge HCT with amlodipine, losartan/HCTZ 10/320/25, 1/2 tablet p.o. at bedtime p.r.n. elevated blood pressure. 7. Hydrocodone/APAP 10/325 mg 1-2 every 4 hours as needed for pain. 8. Aspirin 81 mg daily. 9. Guaifenesin with Codeine cough syrup as needed. 10. Spiriva inhaler 2 puffs inhaled daily. PHYSICAL EXAMINATION: The patient was seen and examined on the day of discharge. Discharge plan and disposition was discussed with the patient and his at length prior to dischar ge. FOLLOWUP APPOINTMENTS: 1. Primary care physician within a week. 2. Dr. Ivy Cobos on 01/20/2018 at 11:30 a.m. to start his biologic immunotherapy. 3. Dr. Tyrone Damon in [place] is a primary care physician. 3. Dr. Castel in 2-3 weeks. DISCHARGE ACTIVITY: Per cardiopulmonary limits. DISCHARGE DIET: Heart healthy recommended. DISCHARGE CONDITION: Stable. DISPOSITION: Will be discharged home via private vehicle.
== END 2018-01-19 15:20 | disposition home health service (06) | DRG 189 ==
LOC: SCSER 11:02 → ONC 12:31
PROVIDERS: ADMIT Internal Medicine; ATTEND Internal Medicine
PROC: 5A09357 Assistance with Respiratory Ventilation, Less than 24 Consecutive Hours, Continuous Positive Airway Pressure (ICD-10-PCS; 2018-01-15)
PROC: 0W9B3ZZ Drainage of Left Pleural Cavity, Percutaneous Approach (ICD-10-PCS; principal; 2018-01-18)
DX: J96.01 Acute respiratory failure with hypoxia (principal); J91.0 Malignant pleural effusion; C34.90 Malignant neoplasm of unspecified part of unspecified bronchus or lung; J44.1 Chronic obstructive pulmonary disease with (acute) exacerbation; I10 Essential (primary) hypertension; E78.5 Hyperlipidemia, unspecified
CPT/HCPCS: 71045; 78306; 80048; 80053; 82553; 83605; 83690; 83880; 84484; 85025; 85610; 85730; 87040; 93005; 94640; 96374; A4216; A9503; C1729; J1642; J1815; J2001; J2250; J2270; J2704; J2920; J3010; J7611; J7620; S0028

== ENCOUNTER 2018-02-01 13:36 | Inpatient (IN) | payer MEDICARE, BC ==
--- NOTE | 2018-02-01 15:53 | RAD ---
FRONTAL RADIOGRAPH CHEST: Date: 02/01/18 COMPARISON: 01/18/18. HISTORY: Shortness of breath. FINDINGS: Lobulated mass-like density involving the left suprahilar region and the left upper lobe region. Ther e is complete opacification of the inferior two-thirds of the left hemithorax. Aeration of the left l alan has worsened markedly since 01/05/[address] When compared to the 01/18/18 chest radiograph, op acification within the left hemithorax has slightly worsened. There is a CT injectable right-sided Po rt-A-Cath. Right lung is grossly unremarkable. IMPRESSION: Extensive lobulated soft tissue density within the left upper lobe with opacification of the inferior half of the left hemithorax suggests underlying extensive malignancy within the left hemithorax. POS: LUISH
[2018-02-01] MEDS ORDERED: Furosemide 40 MG/4 ML VIAL ONE (15:58)
[2018-02-01] MEDS ORDERED: Furosemide 20 MG/2 ML VIAL ONE (15:58)
[2018-02-01 16:00] LABS: #Basophils 0.2 thou/uL (0.0-0.2); #Eosinphils 0.1 thou/uL (0.0-0.7); #Lymphocytes 0.4 thou/uL (1.20-3.40); #Monocytes 1.1 thou/uL (0.11-0.59); %Basophils 1.6 % (0.0-1.0); %Eosinophils 0.7 % (0.0-10.0); %Lymphocytes 3.8 % (21.0-51.0); %Monocytes 10.2 % (0.0-10.0); %Neutrophils 83.7 % (42.0-75.0); Hemoglobin 11.5 g/dL (14.0-18.0); Mean Corpuscular HGB CONC 31.8 g/dL (32.0-36.0); Mean Corpuscular Hemoglobin 31.8 pg (27.0-31.0); Mean Corpuscular Volume 99.9 fl (80.0-94.0); Platelet Count 208 thou/uL (130-400); RBC Distribution Width 14.5 % (11.5-14.5); Red Blood Cell (RBC) Count 3.63 mill/uL (4.70-6.10); White Blood Cell (WBC) Count 10.8 thou/uL (4.8-10.8)
[2018-02-01 16:23] LABS: ALT (SGPT) 17 U/L (8-55); AST (SGOT) 42 U/L (5-34); Alkaline Phosphatase 98 U/L (40-150); BUN (Urea Nitrogen) 50 mg/dL (8.4-25.7); Bilirubin, Total 0.4 mg/dL (0.2-1.2); CK (CPK) 89 U/L (30-200); Calc. Creatinine Clearance 0 mL/min (70-130); Estimated GFR-MDRD 53; Globulin 3.2 g/dL (2.4-3.5); Glucose 159 mg/dL (80-115); Protein, Total 6.2 g/dL (5.8-8.1)
[2018-02-01 16:29] LABS: CKMB 4.3 ng/mL (0-6.6)
[2018-02-01 16:32] LABS: Anion Gap 19 mmol/L (10-20); Carbon Dioxide 36 mmol/L (23-31); Chloride 84 mmol/L (98-107); Sodium 136 mmol/L (136-145)
--- NOTE | 2018-02-01 18:02 | HP ---
PRIMARY CARE PHYSICIAN: Dr. Brokos. CHIEF COMPLAINT: Lower extremity edema. HISTORY OF PRESENT ILLNESS: Mr. Farr is a very pleasant 67-year-old gentleman that has a histo ry of small cell lung cancer. He also has a history of malignant pleural effusion. He was seen in Lukas Cobos's office today and there was concern for increasing lower extremity edema and for this dylan son, he was sent over to the emergency room for evaluation. The patient says that he has had problem s with swelling in his legs for several months, probably at least 8-9 months he says. He also has no agus increasing shortness of breath. He had a thoracentesis done actually done several months ago and then had a repeat done 3 weeks ago in which he had 400 mL of fluid removed. He also in between this time has been sent to [facility] to see if there was any additional treatment that he could receive with regards to his cancer as malignant cells were seen in the fluid. However, it was told that the y had no additional treatment to offer him and he has since returned back for treatment with Dr. Marcus flores. He also says that since he has been at home, he had significant orthopnea where actually signif icant paroxysmal nocturnal dyspnea, where he wakes up 2-3 times a night with shortness of breath. He also basically has to sleep almost upright in order to be able to breathe. He has not slept in a be d or recliner in at least 6 months and he says he knows that this has exacerbated the leg swelling. He says that there is no significant pain in his legs, but it has bothered him because of the legs rodríguez ve been weeping. He has tried Lasix in the past and says that it does not really help the leg swelli ng, it just drives him out. REVIEW OF SYSTEMS: CONSTITUTIONAL: There have been no fevers, chills, no night sweats, no weight lo ss. HEENT: No headaches, no dizziness, no visual changes, no sore throat, rhinorrhea, neck pain, no adenopathy. PULMONARY: No hemoptysis, no cough, no wheezing. CARDIOVASCULAR: He denies any chest pain. He has had PND and orthopnea as previously mentioned and lower extremity edema. GASTROINTEST INAL: No abdominal pain, no nausea, no vomiting, no change in bowels. GENITOURINARY: No urinary fr equency, hematuria, no hesitancy. NEUROLOGIC: No focal weakness, numbness, no seizures. PSYCHIATRI C: No symptoms of anxiety or depression. SKIN AND INTEGUMENT: No skin changes. No rash. PAST MEDICAL HISTORY: Significant for small cell lung cancer, COPD is in his records, but he denies this. PAST SURGICAL HISTORY: He has had a MediPort. ALLERGIES: AMOXICILLIN, DIPHENHYDRAMINE and CHANTIX. SOCIAL HISTORY: He is a former smoker. He quit 6 months ago. He smoked a pack a day for 40 years. He denies any alcohol use. He is and has two children. 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 FAMILY HISTORY: No history of any inheritable diseases. MEDICATIONS: He is not sure of the names of his medications. He says his has them and these we re recorded from the records. From the ER records, he is on a stool softener 100 mg daily, hydrochlo rothiazide 50 mg daily, [place] 10/325 q.6 hours as needed, Lasix 20 mg daily, Aldactone 25 mg daily, T ussin AC, Aleve p.r.n., Tylenol #3 as needed, baclofen 10 mg q.4 hours as needed, and ProAir inhaler p.r.n. PHYSICAL EXAMINATION: GENERAL: He is alert and oriented. He appears to be in no acute distress. VITAL SIGNS: Blood pressure was 100/66, heart rate is 111, respiratory rate of 18, temperature is 98 .3, and O2 sats 93% on 3 liters. HEENT: His pupils are equal, round, and reactive. Extraocular muscles are intact. Sclerae are anic teric. Throat, no erythema, no exudates. NECK: No adenopathy, no bruits. LUNGS: He has some scattered wheezing and rhonchi. No rales bilaterally. CARDIOVASCULAR: He has a normal S1 and S2. I did not appreciate an S3 or S4. No murmurs, clicks or rubs. ABDOMEN: Obese, it is soft, it is nontender, nondistended. Positive for bowel sounds. No rebound, no guarding. EXTREMITIES: He has got 2+ pitting edema and some clear weeping fluid around the ankles. No warmth or erythema. Palpable dorsalis pedis pulses. NEUROLOGIC: Neurologically, the exam is nonfocal. LABORATORY DATA AND IMAGING DATA: White blood cell count 10.8, hemoglobin 11.5, hematocrit is 36.2, platelet count is 208. Sodium is 130, potassium 3.0, chloride is 84, CO2 36, BUN of 50, creatinine 1 .34, and glucose is 159. ProBNP is 101, albumin was 3.0. Chest x-ray showed almost complete opacifi cation of the left hemithorax. ASSESSMENT AND PLAN: 1. This is a pleasant 67-year-old gentleman who was sent over to the emergency room due to increasin g lower extremity edema. I suspect that the lower extremity edema is multifactorial secondary to lik radha venous stasis as well as some mild hypoalbuminemia. It is unlikely that he has significant heart failure to contribute this as his proBNP was actually very close to normal. Unfortunately, due to h is extensive lung cancer and tumor which is encompassing almost all of the left hemithorax, it makes it difficult for the patient to lie supine in order to elevate his legs and improve the lower extremi ty edema. Therefore, it is unclear how much we would actually be able to offer the patient with rega rds to relief of the lower extremity edema. We will, however, go ahead and monitor him overnight her e in the hospital and give a short trial of IV Lasix, try to elevate his legs as much as possible and order an echocardiogram to see if he does have any underlying heart failure or significant valvular disease. Otherwise, mechanical and nonpharmacological measures such as support stockings and wrappin g of the legs would likely be the patient's best option. 2. We will need to reconcile and restart his home medications as appropriate and closely monitor his electrolytes and renal function while he is on the diuretic therapy.
[2018-02-01] MEDS ORDERED: Ondansetron HCl/PF 4 MG/2 ML Vial IVP PRN (18:42)
[2018-02-01] MEDS ORDERED: Ondansetron ODT 4 MG TAB PO PRN (18:42)
[2018-02-01] MEDS ORDERED: Mag-Al 1200 mg/1200 mg/30 ML UDCUP PO PRN (18:42)
[2018-02-01] MEDS ORDERED: Acetaminophen 325 MG TAB PO PRN (18:42)
[2018-02-01 19:13] VITALS: BMI 30.5
--- NOTE | 2018-02-01 20:01 | CON ---
DATE OF CONSULTATION: 02/01/2018 REASON FOR CONSULTATION: Lung cancer. HISTORY OF PRESENT ILLNESS: Mr. Farr is a very pleasant 67-year-old male, who was treated for limited stage small cell lung cancer in 2016. On 12/2017, he had relapse with malignant pleural effusion and abdominal lymphadenopathy. He has been started on immunotherapy with Opdivo and Yervoy. He has been dealing with fluid retention and has been taking Lasix and spironolactone with no improvement. He was scheduled for a paracentesis today. Unfortunately, there was no free fluid to remove. He presented to the emergency room for worsening lower extremity edema. He had a chest x-ray, which showed extensive lobulated soft tissue density within the left upper lobe. There was opacification of the anterior half of the left hemithorax. This has slightly worsened than his x-ray in late December. He was given IV Lasix and is being admitted for further treatment. The patient is chronically short of breath. He is on home O2. He states his shortness of breath is no worse than normal. He does complain of abdominal distention and constipation; however, he did have a bowel movement this weekend. PAST MEDICAL HISTORY: 1. Small cell lung cancer. 2. Hypertension. 3. Chronic obstructive pulmonary disease. PAST SURGICAL HISTORY: MediPort placement. ALLERGIES: No known drug allergies. HOME MEDICATIONS: 1. Albuterol p.r.n. 2. Amlodipine, valsartan, and hydrochlorothiazide daily. 3. Aspirin 81 mg daily. 4. Hydrocodone p.r.n. 5. Morphine 30 mg b.i.d. 6. Pravachol 40 mg daily. 7. Spiriva daily. FAMILY HISTORY: Father had colon cancer. SOCIAL HISTORY: , has 2 children, lives with his spouse. No alcohol, tobacco, or illicit drug use. He is a prior smoker. REVIEW OF SYSTEMS: Twelve-point review of systems is negative except for noted in HPI. PHYSICAL EXAMINATION: VITAL SIGNS: He is afebrile, heart rate is 113, respiratory rate 20, BP is 122/ 53, he is 93% on 2 liters. GENERAL: This is a well-developed, well-nourished male in no acute distress. HEENT: Normocephalic, atraumatic. Pupils are equal and reactive to light. He does have temporal wasting. NECK: Supple. CARDIOVASCULAR: Regular rate and rhythm. He is tachycardic. LUNGS: Diminished in the left lobes. ABDOMEN: Distended and firm. Bowel sounds are positive. EXTREMITIES: He has 4+ weeping edema in bilateral lower extremities. SKIN: There is no rash. HEMATOLOGIC: There is no petechia or purpura. NEUROLOGIC: Nonfocal. PSYCHIATRIC: The patient is alert, oriented, and appropriate. PERTINENT LABORATORY AND X-RAYS: Current WBC is 10.8, hemoglobin 11.5, hematocrit 36.2, platelet count is 208,000, 83% neutrophils, 4% lymphocytes, 10 % monocytes. Sodium is 136, potassium 3, chloride 84, CO2 is 36, BUN is 50, creatinine 1.34, calcium 10, total bilirubin is 0.4, AST is 42, ALT is 17, alkaline phosphatase is 98. Creatinine kinase is 89, CK-MB is 4.3, troponin is 0.010. BNP is 101. Serum total protein 6.2, albumin 3, globulin 3.2. Radiology per HPI. ASSESSMENT: 1. Small cell lung cancer, on Yervoy and Opdivo. 2. Anasarca. DISCUSSION: The patient has been given IV diuretics in the emergency room. This will be continued on a daily basis. He will be monitored over the next 24 hours and if he improves, he can be discharged home to follow up next week for his next cycle of treatment. Thank you for the consult. We will follow him closely. RONDA
[2018-02-01] MEDS: HYDROcodone/Acetaminophen 5/325 mg Tablet PO PRN (20:02)
[2018-02-01] MEDS: Docusate 100 MG CAP PO SCH (20:03)
[2018-02-01] MEDS: Morphine ER 30 MG TAB PO SCH (20:32)
[2018-02-02] MEDS: Furosemide 40 MG/4 ML VIAL SLOW IVP SCH ×2 (04:57→14:02)
[2018-02-02] MEDS: HYDROcodone/Acetaminophen 5/325 mg Tablet PO PRN ×3 (05:12→23:29)
[2018-02-02 05:40] LABS: BUN (Urea Nitrogen) 50 mg/dL (8.4-25.7); Calc. Creatinine Clearance 80 mL/min (70-130); Calcium 10.3 mg/dL (7.8-10.44); Estimated GFR-MDRD 59; Glucose 117 mg/dL (80-115)
[2018-02-02 05:49] LABS: Anion Gap 18 mmol/L (10-20); Carbon Dioxide 39 mmol/L (23-31); Chloride 83 mmol/L (98-107); Potassium 3.1 mmol/L (3.5-5.1); Sodium 137 mmol/L (136-145)
[2018-02-02 05:55] LABS: #Eosinphils 0.1 thou/uL (0.0-0.7); #Lymphocytes 0.6 thou/uL (1.20-3.40); #Monocytes 1.2 thou/uL (0.11-0.59); #Neutrophils 8.3 thou/uL (1.40-6.50); %Basophils 0.1 % (0.0-1.0); %Eosinophils 1.2 % (0.0-10.0); %Lymphocytes 6.2 % (21.0-51.0); %Monocytes 11.8 % (0.0-10.0); %Neutrophils 80.7 % (42.0-75.0); Hemoglobin 11.5 g/dL (14.0-18.0); Mean Corpuscular HGB CONC 31.1 g/dL (32.0-36.0); Mean Corpuscular Hemoglobin 31.5 pg (27.0-31.0); Mean Platelet Volume 7.4 fL (7.4-10.4); Platelet Count 228 thou/uL (130-400); RBC Distribution Width 14.3 % (11.5-14.5); Red Blood Cell (RBC) Count 3.65 mill/uL (4.70-6.10); White Blood Cell (WBC) Count 10.3 thou/uL (4.8-10.8)
[2018-02-02] MEDS: Docusate 100 MG CAP PO SCH (08:22)
[2018-02-02] MEDS: Morphine ER 30 MG TAB PO SCH ×2 (08:22→20:24)
[2018-02-02] MEDS: Enoxaparin Sodium 30 MG/0.3 ML SYRINGE SC SCH (08:23)
[2018-02-02] MEDS ORDERED: guaiFENesin/Codeine Phosphate 200 mg/20 mg 10 ml UD Cup PO PRN (11:12)
--- NOTE | 2018-02-02 11:18 | PDOC.PN ---
- Subjective Encounter Start Date: 02/02/18 Encounter Start Time: 11:16 Subjective: massive edema, sore mouth - Objective Resuscitation Status: Resuscitation Status DNR:Do Not Resuscitate MAR Reviewed: Yes Vital Signs & Weight: Vital Signs (12 hours) Temp Pulse Resp BP BP Pulse Ox 02/02/18 07:20 98.1 F 113 H 18 91/56 L 91 L 02/02/18 04:00 98.1 F 113 H 20 127/73 90 L 02/02/18 03:50 16 02/02/18 00:02 112 H 16 93 L 02/02/18 00:00 98.3 F 112 H 20 90/56 L 92 L Weight Weight 212 lb 15.994 oz I&O: 02/01/18 02/02/18 02/03/18 06:59 06:59 06:59 Intake Total 448 Output Total 500 Balance -52 Result Diagrams: 02/02/18 05:20 02/02/18 05:20 Phys Exam - Physical Examination Neck: no JVD clear on R, dull ,decreased BS on L Cardiovascular: RRR, no significant murmur Gastrointestinal: soft, positive bowel sounds 4+ lymphedema Dx/Plan (1) Acute and chronic respiratory failure with hypoxia Code(s): J96.21 - ACUTE AND CHRONIC RESPIRATORY FAILURE WITH HYPOXIA Status: Acute Comment: PT remains hypoxic with activity, Dr. Chakraborty has ordered home O2 (2) Recurrent left pleural effusion Code(s): J90 - PLEURAL EFFUSION, NOT ELSEWHERE CLASSIFIED Status: Acute (3) Small cell lung cancer Code(s): C34.90 - MALIGNANT NEOPLASM OF UNSP PART OF UNSP BRONCHUS OR LUNG Status: Acute Comment: with recurrence, s/p left thoracentesis with removal of 1.7lts blood tinge effusion, lesion to rib with increasing pain, may need focal radiation therapy (4) COPD (chronic obstructive pulmonary disease) Status: Chronic (5) Dyslipidemia Code(s): E78.5 - HYPERLIPIDEMIA, UNSPECIFIED Status: Chronic (6) HTN (hypertension) Code(s): I10 - ESSENTIAL (PRIMARY) HYPERTENSION Status: Chronic Qualifiers: Comment: Stable. - Plan immunotx per oncology -: echo pending, cont iv lasix -: cont nebs, MS contin , norco * .
[2018-02-02] MEDS ORDERED: HYDROcodone/Acetaminophen 10/325 mg Tablet PO SCH (12:00)
[2018-02-02] MEDS ORDERED: Ipratropium Bromide 2.5 ml Neb NEB SCH (13:00)
[2018-02-02] MEDS: Nystatin 500,000 UNITS/5 ML UDCUP SSW SCH ×3 (14:02→20:26)
[2018-02-02] MEDS: HYDROcodone/Acetaminophen 10/325 mg Tablet PO SCH ×2 (15:01→20:25)
[2018-02-03] MEDS: HYDROcodone/Acetaminophen 10/325 mg Tablet PO SCH ×3 (03:16→16:21)
[2018-02-03 08:16] VITALS: TEMP 98
[2018-02-03] MEDS: Nystatin 500,000 UNITS/5 ML UDCUP SSW SCH ×3 (08:44→18:10)
[2018-02-03] MEDS: Morphine ER 30 MG TAB PO SCH (08:44)
[2018-02-03] MEDS: Enoxaparin Sodium 30 MG/0.3 ML SYRINGE SC SCH (08:45)
[2018-02-03] MEDS: HYDROcodone/Acetaminophen 5/325 mg Tablet PO PRN (08:53)
[2018-02-03] MEDS ORDERED: Docusate 100 MG CAP PO SCH (09:00)
[2018-02-03] MEDS ORDERED: Spiriva 18 MCG CAP (Box of 5 Caps) INH SCH (09:00)
--- NOTE | 2018-02-03 11:18 | PDOC.PN ---
- Subjective Encounter Start Date: 02/03/18 Encounter Start Time: 11:15 Subjective: sleepy, taking significant doses norco - Objective Resuscitation Status: Resuscitation Status DNR:Do Not Resuscitate MAR Reviewed: Yes Vital Signs & Weight: Vital Signs (12 hours) Temp Pulse Resp BP BP Pulse Ox 02/03/18 10:16 92 L 02/03/18 08:15 98 F 114 H 20 111/58 L 02/03/18 06:36 110 H 18 02/03/18 03:25 123 H 18 91 L 02/03/18 03:20 97.4 F L 118 H 16 105/55 L 91 L 02/02/18 23:34 97.8 F 114 H 16 105/53 L 91 L Weight Weight 212 lb 15.994 oz I&O: 02/02/18 02/03/18 02/04/18 06:59 06:59 06:59 Intake Total 448 970 Output Total 500 1050 Balance -52 -80 Result Diagrams: 02/02/18 05:20 02/02/18 05:20 Phys Exam - Physical Examination Neck: no JVD clear on right, dull on left with decreased BS Cardiovascular: RRR, no significant murmur Gastrointestinal: soft, positive bowel sounds lymphedema Dx/Plan (1) Acute and chronic respiratory failure with hypoxia Code(s): J96.21 - ACUTE AND CHRONIC RESPIRATORY FAILURE WITH HYPOXIA Status: Acute Comment: PT remains hypoxic with activity, Dr. Chakraborty has ordered home O2 (2) Recurrent left pleural effusion Code(s): J90 - PLEURAL EFFUSION, NOT ELSEWHERE CLASSIFIED Status: Acute (3) Small cell lung cancer Code(s): C34.90 - MALIGNANT NEOPLASM OF UNSP PART OF UNSP BRONCHUS OR LUNG Status: Acute Comment: with recurrence, s/p left thoracentesis with removal of 1.7lts blood tinge effusion, lesion to rib with increasing pain, may need focal radiation therapy (4) COPD (chronic obstructive pulmonary disease) Status: Chronic (5) Dyslipidemia Code(s): E78.5 - HYPERLIPIDEMIA, UNSPECIFIED Status: Chronic (6) HTN (hypertension) Code(s): I10 - ESSENTIAL (PRIMARY) HYPERTENSION Status: Chronic Qualifiers: Comment: Stable. - Plan discussed with oncology. they will see and call me * .
[2018-02-03 16:10] VITALS: BP 87/51
[2018-02-03] MEDS ORDERED: Morphine IR Tab 15 MG TAB PO PRN (16:58)
--- NOTE | 2018-02-04 14:33 | DIS ---
DATE OF ADMISSION: 02/01/2018 DATE OF DISCHARGE: 02/03/2018 DISCHARGE DISPOSITION: Discharged home. FINAL DIAGNOSES: Acute on chronic respiratory failure; lung cancer, small cell; chronic obstructive pulmonary disease; left pleural effusion; thrombocytopenia; hypertension; dyslipidemia; obstructive s leep apnea; chronic kidney disease, stage 3. DISCHARGE MEDICATIONS: Spironolactone 25 mg a day, Lasix 20 mg a day, hydrochlorothiazide 50 mg a da y, codeine phosphate cough syrup two teaspoons p.o. q.i.d. p.r.n., ProAir RespiClick 1 puff q.3 hours p.r.n., albuterol sulfate 2.5 neb q.2 hours p.r.n., DuoNeb 3 mL q.6 hours neb, Kunkle 10/325 two tabs p.o. q.6 hours p.r.n., MS Contin 60 mg p.o. q.12 hours, morphine instant release tablet 15 mg q.4 ho urs p.r.n. HOSPITAL COURSE: The patient admitted to [facility] with lower extremity edema, increasing shortness of breath. Chest x-ray revealed complete rep lacement of his left lung with tumor and pleural effusion. LABORATORY: White count 10.8, hemoglobin 11.5, platelet count 208,000. Sodium 136, potassium 3, BUN 50, creatinine 1.34. Liver function test grossly normal. Seen in consultation by Oncology, nurse Ani gao. After evaluation, the patient's medicines were adjusted. His O2 was adju sted. He is being discharged home. PROCEDURES: None. FOLLOWUP: With Oncology next Thursday or Thursday for laboratory and immunotherapy on Thursday. CODE STATUS: DNR. PENDING AT THE TIME OF DISCHARGE: Nothing. DIET: As tolerated.
== END 2018-02-03 18:07 | disposition home health service (06) | DRG 189 ==
LOC: ERS 13:36 → ERHOLD 15:45 → T4-B 18:21 → ONC 02-02 18:22
PROVIDERS: ADMIT Internal Medicine; ATTEND Internal Medicine
DX: J96.21 Acute and chronic respiratory failure with hypoxia (principal); J91.0 Malignant pleural effusion; D69.6 Thrombocytopenia, unspecified; Z99.81 Dependence on supplemental oxygen; C34.92 Malignant neoplasm of unspecified part of left bronchus or lung; E88.09 Other disorders of plasma-protein metabolism, not elsewhere classified; R60.1 Generalized edema; N18.3 Chronic kidney disease, stage 3 (moderate); Z66 Do not resuscitate; J44.9 Chronic obstructive pulmonary disease, unspecified; I12.9 Hypertensive chronic kidney disease with stage 1 through stage 4 chronic kidney disease, or unspecified chronic kidney disease; G47.33 Obstructive sleep apnea (adult) (pediatric); E78.5 Hyperlipidemia, unspecified; R59.0 Localized enlarged lymph nodes; Z51.5 Encounter for palliative care; Z87.891 Personal history of nicotine dependence; I87.8 Other specified disorders of veins
CPT/HCPCS: 36415; 71045; 76705; 80048; 80053; 82553; 83880; 84484; 85025; 85610; 85730; 93306; 94640; 96374; J1642; J1650; J1940; J7620

== ENCOUNTER → 2018-02-01 | Day surgery (SDC) | payer MEDICARE, BC ==
[~2018-02-01] MED LIST: FLU VACC TS2017-18 (>65YR) 0.5 ML SYRINGE IM ONE; Prevnar 13-Val Conj/PF 0.5 ML SYRINGE IM ONE
[2018-02-01 10:34] VITALS: BMI 31.4
[2018-02-01 12:43] LABS: #Eosinphils 0.1 thou/uL (0.0-0.7); #Lymphocytes 0.6 thou/uL (1.20-3.40); #Monocytes 1.3 thou/uL (0.11-0.59); #Neutrophils 9.4 thou/uL (1.40-6.50); %Lymphocytes 5.5 % (21.0-51.0); %Monocytes 11.5 % (0.0-10.0); %Neutrophils 82.1 % (42.0-75.0); Hemoglobin 11.7 g/dL (14.0-18.0); Mean Corpuscular HGB CONC 31.5 g/dL (32.0-36.0); Mean Corpuscular Hemoglobin 31.5 pg (27.0-31.0); Mean Platelet Volume 6.6 fL (7.4-10.4); Platelet Count 202 thou/uL (130-400); RBC Distribution Width 14.4 % (11.5-14.5); Red Blood Cell (RBC) Count 3.73 mill/uL (4.70-6.10); White Blood Cell (WBC) Count 11.5 thou/uL (4.8-10.8)
[2018-02-01 12:49] LABS: INR-International Normal Ratio 1.2; PTT 32.2 SEC (22.9-36.1); Prothrombin Time 15.7 SEC (12.0-14.7)
--- NOTE | 2018-02-01 15:54 | ULT ---
LIMITED ULTRASOUND ABDOMEN: HISTORY: Ascites. COMPARISON: CT abdomen and pelvis from 01/03/2018. FINDINGS: There is no significant free ascites. IMPRESSION: No significant ascites. POS: [facility]
== END ==
LOC: ULT 12:20
PROVIDERS: ATTEND Internal Medicine Hematology & Oncology
DX: C34.02 Malignant neoplasm of left main bronchus (principal); R60.0 Localized edema; J44.9 Chronic obstructive pulmonary disease, unspecified; F17.200 Nicotine dependence, unspecified, uncomplicated; Z88.1 Allergy status to other antibiotic agents; Z88.8 Allergy status to other drugs, medicaments and biological substances; Z79.899 Other long term (current) drug therapy; Z80.0 Family history of malignant neoplasm of digestive organs
CPT/HCPCS: 36415; 76705; 85025; 85610; 85730